=== PATIENT | female | born 1995 | race Caucasian/White ===

== ENCOUNTER 2016-04-23 08:34 | Emergency (ER) | payer OTHER ==
[~2016-04-23] VITALS: Ht 165.1 cm; Wt 77.1 kg
[~2016-04-23 08:34] MED LIST: CIPR500T94 PO; HYDR-2666 PO; HYDR-971 PO; LEVO500T38 PO; LEVO750T5 PO; NITR100C62 PO; ONDA4TAB10 SL; PROM25TA10 PO; SULF1TAB24 PO
--- NOTE | 2016-04-23 09:34 | PHYS DOC ---
Past Medical History Past Medical History: Anxiety, Asthma, Other Additional Past Medical Histor: BRADYCARDIA, PANIC ATTACK, PTSD Past Surgical History: Cholecystectomy, Other Additional Past Surgical Histo: LEFT FOOT SURGERY FRX REPAIR WITH HARDWARE Alcohol Use: Occasionally Drug Use: Cocaine, Marijuana, Methamphetamine Adult General Chief Complaint Chief Complaint: DRUG ABUSE HPI HPI Patient is a 21 year old female who presents with complaint of suicidal ideation. The patient states that over the past week she had thoughts of wanting to hurt herself. Patient states that she decided that she would relapsed on methamphetamine use and states that she took 8 hits of methamphetamine through both snorting and injecting. Patient states that the last injections took place about 1700 yesterday. Patient states currently she is feeling anxious and also feels like she is having difficulty breathing due to dry mouth. The patient also notes that she is having pain in her right forearm. Patient does admit that this was an area where she injected herself yesterday. Patient states that she has been under a significant amount of stress. The patient states that she does not have thoughts currently of committing suicide but she does not feel safe with herself and she thinks that she may relapse and 1 arm herself again if she leaves the department. The patient states the pain in her right arm is 10 out of 10 currently. He is having numbness and tingling in the right hand. Patient denies any fevers. Review of Systems Review of Systems Constitutional: Denies fever or chills [] Eyes: Denies change in visual acuity, redness, or eye pain [] HENT: Denies nasal congestion or sore throat [] Respiratory: Shortness of breath [] Cardiovascular: Denies chest pain or edema [] GI: Denies abdominal pain, nausea, vomiting, bloody stools or diarrhea [] : Denies dysuria or hematuria [] Musculoskeletal: Right arm pain [] Integument: Hives [] Neurologic: Denies headache, focal weakness or sensory changes [] Endocrine: Denies polyuria or polydipsia [] Current Medications Current Medications Current Medications Medications (Trade) Dose Ordered Sig/Lloyd Start Time Stop Time Status Last Admin Dose Admin Lorazepam (Ativan) 1 mg 1X ONCE 04/23/16 12:00 04/23/16 12:01 DC 04/23/16 12:39 1 MG Sodium Chloride (Iv Sodium Chloride 0.9% 1000ml Bag) 1,000 ml @ 1,000 mls/hr Q1H 04/23/16 09:55 04/23/16 10:54 DC 04/23/16 10:42 1,000 MLS/HR Allergies Allergies Allergies Coded Allergies Type Severity Reaction Last Updated Verified Fish Containing Products Allergy Intermediate HIVES- TUNA 04/23/16 Yes Penicillins Allergy Intermediate Hives 04/23/16 Yes ondansetron Allergy Intermediate 04/23/16 Yes Physical Exam Physical Exam Constitutional: Alert, afebrile, appears anxious. [] HENT: Normocephalic, atraumatic, bilateral external ears normal, oropharynx moist, no oral exudates, nose normal. [] Eyes: PERRLA, EOMI, conjunctiva normal, no discharge. [] Neck: Normal range of motion, no tenderness, supple, no stridor. [] Cardiovascular: Tachycardiac, regular rhythm, no murmur [] Lungs & Thorax: Bilateral breath sounds clear to auscultation [] Abdomen: Bowel sounds normal, soft, no tenderness, no masses, no pulsatile masses. [] Skin: Warm, dry, no erythema, no rash. [] Back: No tenderness, no CVA tenderness. [] Extremities: Mild to moderate soft tissue swelling in distal right forearm, tender to palpation, limited range of motion in right wrist secondary to pain, pulses 2+, normal capillary refill in all 5 digits of the right hand [] Neurologic: Alert and oriented X 3, normal motor function, normal sensory function, no focal deficits noted. [] Current Patient Data Vital Signs Vital Signs Date Time Temp Pulse Resp B/P Pulse Ox O2 Delivery O2 Flow Rate FiO2 04/23/16 08:40 98.1 97 26 145/89 100 Room Air 98.1 Lab Values Laboratory Tests Test 04/23/16 08:40 04/23/16 10:40 Urine Collection Type Void Urine Color Yellow Urine Clarity Cloudy Urine pH 7.0 Urine Specific [place] 1.010 Urine Protein Negativemg/dL (NEG-TRACE) Urine Glucose (UA) Negativemg/dL (NEG) Urine Ketones (Stick) Negativemg/dL (NEG) Urine Blood Trace (NEG) Urine Nitrite Negative (NEG) Urine Bilirubin Negative (NEG) Urine Urobilinogen Dipstick 1.0mg/dL (0.2 mg/dL) Urine Leukocyte Esterase Large (NEG) Urine RBC 0/HPF (0-2) Urine WBC 11-20/HPF (0-4) Urine Squamous Epithelial Cells Many/LPF Urine Bacteria Few/HPF (0-FEW) Urine Test Negative (NEG) Urine Opiates Screen Neg (NEG) Urine Methadone Screen Neg (NEG) Urine Barbiturates Neg (NEG) Urine Phencyclidine Screen Neg (NEG) Urine Amphetamine/Methamphetamine Pos (NEG) Urine Benzodiazepines Screen Neg (NEG) Urine Cocaine Screen Neg (NEG) Urine Cannabinoids Screen Pos (NEG) Urine Ethyl Alcohol Neg (NEG) White Blood Count 13.4x10^3/uL (4.0-11.0) H Red Blood Count 4.74x10^6/uL (3.50-5.40) Hemoglobin 13.8g/dL (12.0-15.5) Hematocrit 41.2% (36.0-47.0) Mean Corpuscular Volume 87fL (79-100) Mean Corpuscular Hemoglobin 29pg (25-35) Mean Corpuscular Hemoglobin Concent 34g/dL (31-37) Red Cell Distribution Width 14.1% (11.5-14.5) Platelet Count 296x10^3/uL (140-400) Neutrophils (%) (Auto) 75% (31-73) H Lymphocytes (%) (Auto) 17% (24-48) L Monocytes (%) (Auto) 7% (0-9) Eosinophils (%) (Auto) 0% (0-3) Basophils (%) (Auto) 1% (0-3) Neutrophils # (Auto) 10.1x10^3uL (1.8-7.7) H Lymphocytes # (Auto) 2.2x10^3/uL (1.0-4.8) Monocytes # (Auto) 0.9x10^3/uL (0.0-1.1) Eosinophils # (Auto) 0.1x10^3/uL (0.0-0.7) Basophils # (Auto) 0.1x10^3/uL (0.0-0.2) Sodium Level 136mmol/L (136-145) Potassium Level 3.3mmol/L (3.5-5.1) L Chloride Level 102mmol/L (98-107) Carbon Dioxide Level 22mmol/L (21-32) Anion Gap 12 (6-14) Blood Urea Nitrogen 6mg/dL (7-20) L Creatinine 0.8mg/dL (0.6-1.0) Estimated GFR (Cockcroft-Gault) 90.5 Glucose Level 90mg/dL (70-99) Calcium Level 9.4mg/dL (8.5-10.1) Magnesium Level 1.7mg/dL (1.8-2.4) L Total Bilirubin 1.8mg/dL (0.2-1.0) H Direct Bilirubin 0.2mg/dL (0.0-0.2) Aspartate Amino Transferase (AST) 18U/L (15-37) Alanine Aminotransferase (ALT) 18U/L (14-59) Alkaline Phosphatase 89U/L (46-116) Total Protein 8.2g/dL (6.4-8.2) Albumin 4.0g/dL (3.4-5.0) Salicylates Level < 2.8mg/dL (2.8-20.0) L Salicylate Last Dose Date Unknown Salicylate Last Dose Time Unknown Acetaminophen Level < 2.0mcg/ml (10-30) L Acetaminophen Last Dose Date Unknown Acetaminophen Last Dose Time Unknown Laboratory Tests 04/23/16 10:40 Laboratory Tests 04/23/16 10:40 EKG EKG Interpreted by me: Heart rate 94, sinus rhythm, normal intervals, normal axis, no acute ST/T-wave abnormalities present [] Radiology/Procedures Radiology/Procedures [facility] [address] [place], [place] [id number] IMAGING REPORT Signed PATIENT: LUZ ELENA HERNANDEZ ACCOUNT: [id number] : 1995 LOCATION: ER AGE: 21 SEX: F EXAM STATUS: REG ER ORD. PHYSICIAN: ULISES MENDENHALL MD REASON: INJECTED IV DRUGS 04/22, PAIN AND REDNESS PROCEDURE: FOREARM RIGHT Right forearm radiograph History: Right forearm pain, history of IV drug abuse. Comparison: None. Findings: AP and lateral views of the right forearm, 3 images. No acute osseous abnormality is identified. No radiopaque foreign body is seen within the soft tissues of the right forearm. No focal soft tissue gas collection is seen. Impression: No acute radiographic abnormality identified. DICTATED and SIGNED BY: PARVIN ORTEZ MD DATE: 04/23/16 1023 CC: ULISES MENDENHALL MD; NO PCP ~ [] Course & Med Decision Making Course & Med Decision Making Pertinent Labs and Imaging studies reviewed. (See chart for details) Patient was given IV fluids and was given Ativan to help with what appeared to be symptoms consistent with sequela of methamphetamine use. Patient's symptoms improved. Patient's pain has also improved in the right upper extremity and the patient is currently able to use her cell phone without difficulty while in the emergency department. Due to the patient not feeling safe by herself, I consult that [facility] team. He came and evaluated the patient in the emergency department. After speaking with the patient and after calling available facilities, the patient was accepted at [facility]. The patient will be transferred by ground ambulance. The patient was also found to have evidence of urinary tract infection and was started on Macrobid therapy. Dragon Disclaimer Dragon Disclaimer This electronic medical record was generated, in whole or in part, using a voice recognition dictation system. Departure Departure Impression: Primary Impression: Suicidal thoughts Additional Impressions: Methamphetamine abuse Urinary tract infection Disposition: 05 TRANSFER OTHER Condition: STABLE Referrals: NO PCP (PCP) Patient Instructions: Substance Abuse-Brief, Urinary Tract Infection Additional Instructions: You will be transferred to [facility] for further treatment. He will also need to complete your antibiotic for treatment of your urinary tract infection. Return to emergency department for any worsening symptoms. Scripts Nitrofurantoin Monohyd/M-Cryst (Macrobid 100 Mg Capsule)100 Mg Capsule1 Cap PO BID #14 CAP Prov:ULISES MENDENHALL MD 04/23/16 Problem Qualifiers Additional Impressions: Urinary tract infection Urinary tract infection type: site unspecified Hematuria presence: without hematuria Qualified Code: N39.0 - Urinary tract infection, site not specified ULISES MENDENHALL MD Apr 23, 2016 09:34
[2016-04-23] MEDS ORDERED: IV NORMAL SALINE 1000ML BAG 1,000 ML IV SCH (09:55)
[2016-04-23] MEDS ORDERED: LORAZEPAM 2 MG/ML VIAL IV ONE ×2 (10:00→12:00)
[2016-04-23 10:04] LABS: NEG OBC UR NEG; POS OBC UR POS
[2016-04-23 10:12] LABS: BILIRUBIN,URINE NEGATIVE (NEG); GLUCOSE,URINE NEGATIVE (NEG); NITRITE,URINE NEGATIVE (NEG); PROTEIN,URINE NEGATIVE (NEG-TRACE)
--- NOTE | 2016-04-23 10:26 | RAD ---
Right forearm radiograph History: Right forearm pain, history of IV drug abuse. Comparison: None. Findings: AP and lateral views of the right forearm, 3 images. No acute osseous abnormality is identified. No radiopaque foreign body is seen within the soft tissues of the right forearm. No focal soft tissue gas collection is seen. Impression: No acute radiographic abnormality identified.
[2016-04-23 10:28] LABS: BACTERIA,URINE FEW /HPF (0-FEW); RBC,URINE 0 /HPF (0-2); SQUAMOUS EPITHELIAL CELL,UR MANY /LPF
[2016-04-23 10:30] LABS: BARBITURATES NEG (NEG); BENZODIAZEPINES NEG (NEG); CANNABINOIDS POS (NEG); COCAINE NEG (NEG); METHADONE NEG (NEG); OPIATES NEG (NEG); PHENCYCLIDINE NEG (NEG)
[2016-04-23 10:32] LABS: ETHANOL, URINE NEG (NEG)
[2016-04-23 11:01] LABS: BASO # 0.1 x10^3/uL (0.0-0.2); BASO % 1 % (0-3); EOS % 0 % (0-3); HEMATOCRIT 41.2 % (36.0-47.0); HEMOGLOBIN 13.8 g/dL (12.0-15.5); LYMPH # 2.2 x10^3/uL (1.0-4.8); LYMPH % 17 % (24-48); MEAN CORPUSCULAR HEMOGLOBIN 29 pg (25-35); MEAN CORPUSCULAR HGB CONC 34 g/dL (31-37); MEAN CORPUSCULAR VOLUME 87 fL (79-100); MONO % 7 % (0-9); NEUT % 75 % (31-73); PLATELET COUNT 296 x10^3/uL (140-400); RED BLOOD COUNT 4.74 x10^6/uL (3.50-5.40); RED CELL DISTRIBUTION WIDTH 14.1 % (11.5-14.5); WHITE BLOOD COUNT 13.4 x10^3/uL (4.0-11.0)
[2016-04-23 11:10] LABS: CALCIUM 9.4 mg/dL (8.5-10.1); CREATININE 0.8 mg/dL (0.6-1.0); GFR 90.5; POTASSIUM 3.3 mmol/L (3.5-5.1)
[2016-04-23 11:18] LABS: DIRECT BILIRUBIN 0.2 mg/dL (0.0-0.2); MAGNESIUM 1.7 mg/dL (1.8-2.4); TOTAL BILIRUBIN 1.8 mg/dL (0.2-1.0); TOTAL PROTEIN 8.2 g/dL (6.4-8.2)
--- NOTE | 2016-04-23 12:24 | EKG ---
[facility] [address] [place] [address] Test Date: 2016-04-23 Test Time: 10:34:19 Pat Name: LUZ ELENA HERNANDEZ Department: Room: Gender: F Histopathologist: : 1995 Requested By: ULISES MENDENHALL Order Number: [id number] Reading MD: Clarence Kim Measurements Intervals [place] Rate: 94 P: 34 UT: 142 QRS: 40 QRSD: 84 T: 22 QT: 382 QTc: 478 Interpretive Statements SINUS RHYTHM Electronically Signed On 04-29-2016 11:26:44 LIP OF SHANK CUTTER by Clarence Kim
[2016-04-23] MEDS ORDERED: NITR100C62 PO (14:18)
[2016-04-23 14:40] VITALS: BP 140/76
== END 2016-04-23 15:05 ==
LOC: ER 08:34
DX: T43.622A Poisoning by amphetamines, intentional self-harm, initial encounter (principal); F15.10 Other stimulant abuse, uncomplicated; N39.0 Urinary tract infection, site not specified; J45.909 Unspecified asthma, uncomplicated; F41.9 Anxiety disorder, unspecified; F41.0 Panic disorder [episodic paroxysmal anxiety]; F43.10 Post-traumatic stress disorder, unspecified; F14.10 Cocaine abuse, uncomplicated; F12.10 Cannabis abuse, uncomplicated; Z88.0 Allergy status to penicillin; Z88.8 Allergy status to other drugs, medicaments and biological substances; Z91.013 Allergy to seafood; Y92.89 Other specified places as the place of occurrence of the external cause
CPT/HCPCS: 36415; 73090; 80048; 80076; 81001; 81025; 83735; 85027; 87086; 93005; 96361; 96374; 96376; 99285; G0481; G6038; J2060; J7030; 80196

== ENCOUNTER 2016-05-12 00:39 | Emergency (ER) | payer SELFPAY ==
[~2016-05-12] VITALS: Ht 165.1 cm; Wt 77.1 kg
[2016-05-12 00:45] VITALS: BP 126/107
[2016-05-12] MEDS ORDERED: ZIPRASIDONE IM 20 MG VIAL. IM ONE (01:15)
[2016-05-12] MEDS ORDERED: IV NORMAL SALINE 1000ML BAG 1,000 ML IV ONE (01:15)
[2016-05-12 01:23] LABS: BASO # 0.1 x10^3/uL (0.0-0.2); BASO % 1 % (0-3); EOS % 2 % (0-3); HEMATOCRIT 39.1 % (36.0-47.0); HEMOGLOBIN 12.9 g/dL (12.0-15.5); LYMPH # 1.7 x10^3/uL (1.0-4.8); LYMPH % 13 % (24-48); MEAN CORPUSCULAR HEMOGLOBIN 30 pg (25-35); MEAN CORPUSCULAR HGB CONC 33 g/dL (31-37); MEAN CORPUSCULAR VOLUME 90 fL (79-100); MONO % 7 % (0-9); NEUT % 78 % (31-73); PLATELET COUNT 250 x10^3/uL (140-400); RED BLOOD COUNT 4.36 x10^6/uL (3.50-5.40); RED CELL DISTRIBUTION WIDTH 13.7 % (11.5-14.5)
[2016-05-12 01:31] LABS: CALCIUM 9.2 mg/dL (8.5-10.1); CREATININE 0.7 mg/dL (0.6-1.0); GFR 105.6; POTASSIUM 3.3 mmol/L (3.5-5.1)
[2016-05-12 01:37] LABS: ALBUMIN 3.7 g/dL (3.4-5.0); ALBUMIN/GLOBULIN RATIO 0.9 (1.0-1.7); TOTAL BILIRUBIN 0.6 mg/dL (0.2-1.0); TOTAL PROTEIN 7.6 g/dL (6.4-8.2)
[2016-05-12 01:58] LABS: NEG OBC UR NEG; POS OBC UR POS
[2016-05-12 02:00] LABS: BILIRUBIN,URINE MODERATE (NEG); GLUCOSE,URINE NEGATIVE (NEG); NITRITE,URINE NEGATIVE (NEG); PROTEIN,URINE NEGATIVE (NEG-TRACE)
[2016-05-12 02:05] LABS: BARBITURATES NEG (NEG); BENZODIAZEPINES NEG (NEG); CANNABINOIDS POS (NEG); COCAINE NEG (NEG); METHADONE NEG (NEG); OPIATES NEG (NEG); PHENCYCLIDINE NEG (NEG)
[2016-05-12 02:07] LABS: BACTERIA,URINE MANY /HPF (0-FEW); ETHANOL, URINE NEG (NEG); RBC,URINE 0 /HPF (0-2); SQUAMOUS EPITHELIAL CELL,UR FEW /LPF
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
[2016-05-12] MEDS ORDERED: LEVOFLOXACIN 500 MG TABLET PO ONE (03:15)
[2016-05-12] MEDS ORDERED: LORAZEPAM 2 MG/ML VIAL IV ONE (03:30)
== END 2016-05-12 04:42 | disposition home or self-care (01) ==
LOC: ER 00:39
DX: F15.10 Other stimulant abuse, uncomplicated (principal); F12.10 Cannabis abuse, uncomplicated; F14.10 Cocaine abuse, uncomplicated; J45.909 Unspecified asthma, uncomplicated; F43.10 Post-traumatic stress disorder, unspecified; F41.9 Anxiety disorder, unspecified; Z88.0 Allergy status to penicillin; Z91.013 Allergy to seafood; Z88.8 Allergy status to other drugs, medicaments and biological substances
CPT/HCPCS: 36415; 51701; 80053; 81001; 81025; 85027; 87086; 96361; 96374; 99285; G0480; G0481; J2060; J7030

== ENCOUNTER 2016-06-03 12:50 | Emergency (ER) | payer SELFPAY ==
[~2016-06-03] VITALS: Ht 165.1 cm; Wt 81.6 kg
[2016-06-03 13:41] LABS: BILIRUBIN,URINE SMALL (NEG); GLUCOSE,URINE NEGATIVE (NEG); NITRITE,URINE NEGATIVE (NEG); PH,URINE 7.5; PROTEIN,URINE NEGATIVE (NEG-TRACE); UROBILINOGEN,URINE 0.2 mg/dL (0.2 mg/dL)
[2016-06-03 13:48] LABS: BACTERIA,URINE MANY /HPF (0-FEW); RBC,URINE 0 /HPF (0-2); SQUAMOUS EPITHELIAL CELL,UR MANY /LPF
[2016-06-03 13:53] LABS: BASO % 1 % (0-3); EOS % 1 % (0-3); HEMATOCRIT 40.7 % (36.0-47.0); HEMOGLOBIN 13.3 g/dL (12.0-15.5); LYMPH # 1.4 x10^3/uL (1.0-4.8); LYMPH % 20 % (24-48); MEAN CORPUSCULAR HEMOGLOBIN 29 pg (25-35); MEAN CORPUSCULAR HGB CONC 33 g/dL (31-37); MEAN CORPUSCULAR VOLUME 89 fL (79-100); MONO % 6 % (0-9); NEUT % 73 % (31-73); PLATELET COUNT 226 x10^3/uL (140-400); RED BLOOD COUNT 4.57 x10^6/uL (3.50-5.40); RED CELL DISTRIBUTION WIDTH 14.6 % (11.5-14.5); WHITE BLOOD COUNT 7.3 x10^3/uL (4.0-11.0)
[2016-06-03] MEDS ORDERED: DOXYLAMINE SUCCINATE 25 MG TABLET PO ONE (14:15)
[2016-06-03] MEDS ORDERED: IV NORMAL SALINE 500ML BAG 500 ML IV ONE (14:15)
[2016-06-03] MEDS ORDERED: METOCLOPRAMIDE HCL 10 MG/2 ML VIAL. IV ONE (14:15)
[2016-06-03] MEDS ORDERED: PYRIDOXINE 50 MG TABLET. PO ONE (14:15)
--- NOTE | 2016-06-03 14:40 | RAD ---
Obstetrical ultrasound, 06/03/2016: History: Vaginal bleeding, previous miscarriage Transabdominal scans were obtained. The uterus contains a single gestational sac. The gestational sac contains a yolk sac and a small pole. The pole demonstrates a crown-rump length of 1.2 cm compatible with a gestational age of 7-8 weeks. This yields a sonographic EDC of 01/17/2017. cardiac activity is present with the heart rate measured at 143 bpm. No subchorionic hemorrhage is evident. The ovaries are within normal limits in size. No adnexal abnormality is seen. IMPRESSION: Single viable intrauterine fetus of 7-8 weeks gestational age.
[2016-06-03 15:20] LABS: CALCIUM 8.9 mg/dL (8.5-10.1); CREATININE 0.6 mg/dL (0.6-1.0); GFR 126.2; POTASSIUM 3.7 mmol/L (3.5-5.1)
[2016-06-03 15:44] LABS: ALBUMIN 3.5 g/dL (3.4-5.0); DIRECT BILIRUBIN 0.1 mg/dL (0.0-0.2); TOTAL BILIRUBIN 0.4 mg/dL (0.2-1.0); TOTAL PROTEIN 7.4 g/dL (6.4-8.2)
[2016-06-03 15:49] VITALS: BP 129/67
--- NOTE | 2016-06-03 15:50 | PHYS DOC ---
Past Medical History Past Medical History: Anxiety, Asthma, Other Additional Past Medical Histor: BRADYCARDIA, PANIC ATTACK, PTSD, DRUG ABUSE Past Surgical History: Cholecystectomy, Other Additional Past Surgical Histo: LEFT FOOT SURGERY FRX REPAIR WITH HARDWARE Alcohol Use: Occasionally Drug Use: Cocaine, Marijuana, Methamphetamine Adult General Chief Complaint Chief Complaint: VAGINAL BLEEDING HPI HPI 21-year-old female presenting the emergency department with vaginal bleeding this started approximately 10-20 hours ago. She has mild abdominal pain is cramping in the lower left abdomen. It is nonradiating. It is associated with vomiting. Her vomitus is nonbilious. She is approximate 7 weeks . Review of systems is negative for chest pain shortness of breath fevers or chills. All other review of systems is negative unless otherwise noted in history of present illness. Review of Systems Review of Systems SEE ABOVE. Current Medications Current Medications Current Medications Medications (Trade) Dose Ordered Sig/Lloyd Start Time Stop Time Status Last Admin Dose Admin Doxylamine Succinate (Unisom) 10 mg 1X ONCE 06/03/16 14:15 06/03/16 14:16 UNV Metoclopramide HCl 10 mg 10 mg 1X ONCE 06/03/16 14:15 06/03/16 14:22 DC 06/03/16 14:32 10 MG Pyridoxine HCl (Vitamin B-6) 10 mg 1X ONCE 06/03/16 14:15 06/03/16 14:16 UNV Sodium Chloride (Iv Sodium Chloride 0.9% 500ml Bag) 500 ml @ 500 mls/hr 1X ONCE 06/03/16 14:15 06/03/16 15:14 DC 06/03/16 14:30 500 MLS/HR Allergies Allergies Allergies Coded Allergies Type Severity Reaction Last Updated Verified Fish Containing Products Allergy Intermediate HIVES- TUNA 04/23/16 Yes Penicillins Allergy Intermediate Hives 04/23/16 Yes ondansetron Allergy Intermediate 04/23/16 Yes Physical Exam Physical Exam Constitutional: Well developed, well nourished, no acute distress, non-toxic appearance. HENT: Normocephalic, atraumatic, bilateral external ears normal, oropharynx moist, no oral exudates, nose normal. [] Eyes: PERRLA, EOMI, conjunctiva normal, no discharge. Neck: Normal range of motion, no tenderness, supple, no stridor. [] Cardiovascular:Heart rate regular rhythm, no murmur Lungs & Thorax: Bilateral breath sounds clear to auscultation Abdomen: Soft nontender abdomen without rebound tenderness or guarding present. Negative McBurneys point. Negative Pan sign. No ecchymosis present. Skin: Warm, dry, no erythema, no rash. Back: No tenderness, no CVA tenderness. [] Extremities: No tenderness, no cyanosis, no clubbing, ROM intact, no edema. [] Neurologic: Alert and oriented X 3, normal motor function, normal sensory function, no focal deficits noted. Psychologic: Affect normal, judgement normal, mood normal. [] Current Patient Data Vital Signs Vital Signs Date Time Temp Pulse Resp B/P Pulse Ox O2 Delivery O2 Flow Rate FiO2 06/03/16 15:49 62 20 129/67 99 Room Air 06/03/16 13:26 97.6 97.6 Lab Values Laboratory Tests Test 06/03/16 12:33 06/03/16 13:27 06/03/16 13:40 06/03/16 14:40 Urine Collection Type Unknown Urine Color Dk yellow Urine Clarity Clear Urine pH 7.5 Urine Specific [place] 1.020 Urine Protein Negativemg/dL (NEG-TRACE) Urine Glucose (UA) Negativemg/dL (NEG) Urine Ketones (Stick) Negativemg/dL (NEG) Urine Blood Negative (NEG) Urine Nitrite Negative (NEG) Urine Bilirubin Small (NEG) Urine Urobilinogen Dipstick 0.2mg/dL (0.2 mg/dL) Urine Leukocyte Esterase Moderate (NEG) Urine RBC 0/HPF (0-2) Urine WBC 5-10/HPF (0-4) Urine Squamous Epithelial Cells Many/LPF Urine Bacteria Many/HPF (0-FEW) Urine Mucus Marked/LPF POC Urine HCG, Qualitative Hcg positive (Negative) White Blood Count 7.3x10^3/uL (4.0-11.0) Red Blood Count 4.57x10^6/uL (3.50-5.40) Hemoglobin 13.3g/dL (12.0-15.5) Hematocrit 40.7% (36.0-47.0) Mean Corpuscular Volume 89fL (79-100) Mean Corpuscular Hemoglobin 29pg (25-35) Mean Corpuscular Hemoglobin Concent 33g/dL (31-37) Red Cell Distribution Width 14.6% (11.5-14.5) H Platelet Count 226x10^3/uL (140-400) Neutrophils (%) (Auto) 73% (31-73) Lymphocytes (%) (Auto) 20% (24-48) L Monocytes (%) (Auto) 6% (0-9) Eosinophils (%) (Auto) 1% (0-3) Basophils (%) (Auto) 1% (0-3) Neutrophils # (Auto) 5.3x10^3uL (1.8-7.7) Lymphocytes # (Auto) 1.4x10^3/uL (1.0-4.8) Monocytes # (Auto) 0.4x10^3/uL (0.0-1.1) Eosinophils # (Auto) 0.1x10^3/uL (0.0-0.7) Basophils # (Auto) 0.0x10^3/uL (0.0-0.2) Maternal Serum HCG Beta Subunit [id number]/mL (0-6) H Sodium Level 141mmol/L (136-145) Potassium Level 3.7mmol/L (3.5-5.1) Chloride Level 106mmol/L (98-107) Carbon Dioxide Level 25mmol/L (21-32) Anion Gap 10 (6-14) Blood Urea Nitrogen 4mg/dL (7-20) L Creatinine 0.6mg/dL (0.6-1.0) Estimated GFR (Cockcroft-Gault) 126.2 Glucose Level 91mg/dL (70-99) Calcium Level 8.9mg/dL (8.5-10.1) Total Bilirubin 0.4mg/dL (0.2-1.0) Direct Bilirubin 0.1mg/dL (0.0-0.2) Aspartate Amino Transferase (AST) 19U/L (15-37) Alanine Aminotransferase (ALT) 25U/L (14-59) Alkaline Phosphatase 58U/L (46-116) Total Protein 7.4g/dL (6.4-8.2) Albumin 3.5g/dL (3.4-5.0) Lipase 123U/L (73-393) Laboratory Tests 06/03/16 13:40 Laboratory Tests 06/03/16 14:40 EKG EKG [] Radiology/Procedures Radiology/Procedures [] Course & Med Decision Making Course & Med Decision Making Pertinent Labs and Imaging studies reviewed. (See chart for details) [] 21-year-old female is approximately 7 weeks presenting to the emergency department today with abdominal pain and vaginal bleeding. Vital signs unremarkable. Physical exam showed a nontender abdomen. Rh+. CBC unremarkable. Urinalysis suggestive of possible UTI. Chemistry panel otherwise unremarkable ultrasound shows an intrauterine . The patient was subsequent discharged home to follow up with her OB in 2-3 days. She was discharged home with Keflex for urinary tract infection/bacteriuria. Dragon Disclaimer Dragon Disclaimer This electronic medical record was generated, in whole or in part, using a voice recognition dictation system. Departure Departure Impression: Primary Impression: UTI (urinary tract infection) Disposition: 01 HOME, SELF-CARE Condition: STABLE Referrals: NO PCP (PCP) ERNESTO PEACOCK Jr, MD Patient Instructions: Threatened Miscarriage Additional Instructions: Thank you for allowing us to participate in your care today. Followup with your primary care physician in 3 days if your symptoms do not improve. If you do not have a primary care provider you can ask for a list of our primary care providers. Return to the emergency department you have any new or concerning findings. This should be evaluated by the primary care physician and any necessary consulting services for continued management within a few days after discharge. Return to emergency room if you have any new or concerning symptoms including but not limited to fever, chills, nausea, vomiting, intractable pain, any new rashes, chest pain, shortness of air, uncontrolled bleeding, difficulty breathing, and/or vision loss. Scripts Cephalexin (Keflex)500 Mg Capsule1 Cap PO BID #14 CAP Prov:LOLITA GUZMAN MD 06/03/16 LOLITA GUZMAN MD Jun 03, 2016 15:50
[2016-06-03] MEDS ORDERED: CEPH-264 PO (15:52)
== END 2016-06-03 16:01 | disposition home or self-care (01) ==
LOC: ER 12:50
DX: O23.41 Unspecified infection of urinary tract in pregnancy, first trimester (principal); J45.909 Unspecified asthma, uncomplicated; F12.10 Cannabis abuse, uncomplicated; F14.10 Cocaine abuse, uncomplicated; F15.10 Other stimulant abuse, uncomplicated; Z88.0 Allergy status to penicillin; Z88.8 Allergy status to other drugs, medicaments and biological substances; Z91.013 Allergy to seafood; Z3A.01 Less than 8 weeks gestation of pregnancy
CPT/HCPCS: 36415; 76801; 80048; 80076; 81001; 81025; 83690; 84702; 85027; 86900; 86901; 87086; 96361; 96374; 99285; J2765; J7040; 87186

== ENCOUNTER 2016-06-16 17:27 | Emergency (ER) | payer SELFPAY ==
[~2016-06-16 17:27] MED LIST changes: +CEPH-264 PO
[2016-06-16] MEDS ORDERED: PROMETHAZINE IM 25 MG/ML VIAL IM ONE (18:45)
[2016-06-16] MEDS ORDERED: IV NORMAL SALINE 1000ML BAG 1,000 ML IV SCH (18:45)
[2016-06-16 19:40] LABS: BASO # 0.1 x10^3/uL (0.0-0.2); BASO % 0 % (0-3); EOS % 0 % (0-3); HEMATOCRIT 40.4 % (36.0-47.0); HEMOGLOBIN 13.2 g/dL (12.0-15.5); LYMPH # 1.3 x10^3/uL (1.0-4.8); LYMPH % 9 % (24-48); MEAN CORPUSCULAR HEMOGLOBIN 29 pg (25-35); MEAN CORPUSCULAR HGB CONC 33 g/dL (31-37); MEAN CORPUSCULAR VOLUME 90 fL (79-100); MONO % 4 % (0-9); NEUT % 87 % (31-73); PLATELET COUNT 223 x10^3/uL (140-400); WHITE BLOOD COUNT 15.6 x10^3/uL (4.0-11.0)
[2016-06-16 19:55] LABS: CALCIUM 8.7 mg/dL (8.5-10.1); CREATININE 0.6 mg/dL (0.6-1.0); GFR 126.2; POTASSIUM 3.8 mmol/L (3.5-5.1)
[2016-06-16 20:01] LABS: ALBUMIN 3.3 g/dL (3.4-5.0); MAGNESIUM 1.8 mg/dL (1.8-2.4); TOTAL BILIRUBIN 0.4 mg/dL (0.2-1.0); TOTAL PROTEIN 6.7 g/dL (6.4-8.2)
[2016-06-16 20:14] LABS: BILIRUBIN,URINE NEGATIVE (NEG); GLUCOSE,URINE NEGATIVE (NEG); NITRITE,URINE POSITIVE (NEG); PROTEIN,URINE 30 mg/dL (NEG-TRACE)
--- NOTE | 2016-06-16 20:27 | PHYS DOC ---
Past Medical History Past Medical History: Anxiety, Asthma, Other Additional Past Medical Histor: BRADYCARDIA, PANIC ATTACK, PTSD, DRUG ABUSE Past Surgical History: Cholecystectomy, Other Additional Past Surgical Histo: LEFT FOOT SURGERY FRX REPAIR WITH HARDWARE Alcohol Use: Occasionally Drug Use: Cocaine, Marijuana, Methamphetamine Adult General Chief Complaint Chief Complaint: VOMITING IN HPI HPI Patient is a 21 year old female who presents with complaint of nausea, vomiting , and lower abdominal pain. Patient is A1 approximately 9 weeks with last menstrual period on February 23, 2016. Patient states that she started getting severe lower abdominal pain with multiple episodes of vomiting earlier this morning and has had persistent symptoms since. Patient states that she followed up with [facility] where she had an ultrasound that confirmed an intrauterine . Patient has not had any associated fevers. Patient rates her pain as 8 out of 10 and states that it is sharp. Patient denies any exacerbating symptoms for her pain. Patient has not taken any medications to help with symptoms. Patient has not currently set up with care. Review of Systems Review of Systems Constitutional: Denies fever or chills [] Eyes: Denies change in visual acuity, redness, or eye pain [] HENT: Denies nasal congestion or sore throat [] Respiratory: Denies cough or shortness of breath [] Cardiovascular: Denies chest pain or edema [] GI: Abdominal pain, nausea, vomiting, denies bloody stools or diarrhea [] : Denies vaginal bleeding, discharge, dysuria, or hematuria [] Musculoskeletal: Denies back pain or joint pain [] Integument: Denies rash or skin lesions [] Neurologic: Denies headache, focal weakness or sensory changes [] Current Medications Current Medications Current Medications Medications (Trade) Dose Ordered Sig/Lloyd Start Time Stop Time Status Last Admin Dose Admin Ceftriaxone Sodium (Rocephin 1gm Ivpb For Omni) 50 ml @ 100 mls/hr 1X ONCE 06/16/16 20:45 06/16/16 21:14 Promethazine HCl 25 mg 25 mg 1X ONCE 06/16/16 18:45 06/16/16 18:48 DC 06/16/16 19:12 25 MG Sodium Chloride (Iv Sodium Chloride 0.9% 1000ml Bag) 1,000 ml @ 1,000 mls/hr Q1H 06/16/16 18:45 06/16/16 19:44 DC 06/16/16 19:11 1,000 MLS/HR Allergies Allergies Allergies Coded Allergies Type Severity Reaction Last Updated Verified Fish Containing Products Allergy Intermediate HIVES- TUNA 04/23/16 Yes Penicillins Allergy Intermediate Hives 06/16/16 Yes ondansetron Allergy Intermediate 04/23/16 Yes Physical Exam Physical Exam Constitutional: Alert, afebrile, appears in mild discomfort. [] HENT: Normocephalic, atraumatic, bilateral external ears normal, oropharynx moist, no oral exudates, nose normal. [] Eyes: PERRLA, EOMI, conjunctiva normal, no discharge. [] Neck: Normal range of motion, no tenderness, supple, no stridor. [] Cardiovascular:Heart rate regular rhythm, no murmur [] Lungs & Thorax: Bilateral breath sounds clear to auscultation [] Abdomen: Bowel sounds normal, soft, suprapubic tenderness to palpation, no masses, no pulsatile masses. Pelvic: Normal external exam, no blood in vaginal canal, no cervical motion tenderness, midline and right adnexal tenderness to palpation [] Skin: Warm, dry, no erythema, no rash. [] Back: No tenderness, no CVA tenderness. [] Extremities: No tenderness, no cyanosis, no clubbing, ROM intact, no edema. [] Neurologic: Alert and oriented X 3, normal motor function, normal sensory function, no focal deficits noted. [] Current Patient Data Vital Signs Vital Signs Date Time Temp Pulse Resp B/P Pulse Ox O2 Delivery O2 Flow Rate FiO2 06/16/16 19:45 86 101/65 98 Room Air 06/16/16 19:14 18 06/16/16 18:00 98.8 98.8 Lab Values Laboratory Tests Test 06/16/16 19:20 06/16/16 20:00 White Blood Count 15.6x10^3/uL (4.0-11.0) H Red Blood Count 4.50x10^6/uL (3.50-5.40) Hemoglobin 13.2g/dL (12.0-15.5) Hematocrit 40.4% (36.0-47.0) Mean Corpuscular Volume 90fL (79-100) Mean Corpuscular Hemoglobin 29pg (25-35) Mean Corpuscular Hemoglobin Concent 33g/dL (31-37) Red Cell Distribution Width 15.0% (11.5-14.5) H Platelet Count 223x10^3/uL (140-400) Neutrophils (%) (Auto) 87% (31-73) H Lymphocytes (%) (Auto) 9% (24-48) L Monocytes (%) (Auto) 4% (0-9) Eosinophils (%) (Auto) 0% (0-3) Basophils (%) (Auto) 0% (0-3) Neutrophils # (Auto) 13.5x10^3uL (1.8-7.7) H Lymphocytes # (Auto) 1.3x10^3/uL (1.0-4.8) Monocytes # (Auto) 0.6x10^3/uL (0.0-1.1) Eosinophils # (Auto) 0.0x10^3/uL (0.0-0.7) Basophils # (Auto) 0.1x10^3/uL (0.0-0.2) Platelet Estimate Pending Maternal Serum HCG Beta Subunit [id number]/mL (0-6) H Sodium Level 141mmol/L (136-145) Potassium Level 3.8mmol/L (3.5-5.1) Chloride Level 106mmol/L (98-107) Carbon Dioxide Level 26mmol/L (21-32) Anion Gap 9 (6-14) Blood Urea Nitrogen 6mg/dL (7-20) L Creatinine 0.6mg/dL (0.6-1.0) Estimated GFR (Cockcroft-Gault) 126.2 BUN/Creatinine Ratio 10 (6-20) Glucose Level 94mg/dL (70-99) Calcium Level 8.7mg/dL (8.5-10.1) Magnesium Level 1.8mg/dL (1.8-2.4) Total Bilirubin 0.4mg/dL (0.2-1.0) Aspartate Amino Transferase (AST) 21U/L (15-37) Alanine Aminotransferase (ALT) 24U/L (14-59) Alkaline Phosphatase 61U/L (46-116) Total Protein 6.7g/dL (6.4-8.2) Albumin 3.3g/dL (3.4-5.0) L Albumin/Globulin Ratio 1.0 (1.0-1.7) Urine Collection Type U cath Urine Color [place] Urine Clarity Cloudy Urine pH 8.0 Urine Specific [place] >=1.030 Urine Protein 30mg/dL (NEG-TRACE) Urine Glucose (UA) Negativemg/dL (NEG) Urine Ketones (Stick) Tracemg/dL (NEG) Urine Blood Negative (NEG) Urine Nitrite Positive (NEG) Urine Bilirubin Negative (NEG) Urine Urobilinogen Dipstick 1.0mg/dL (0.2 mg/dL) Urine Leukocyte Esterase Small (NEG) Urine RBC Occ/HPF (0-2) Urine WBC 5-10/HPF (0-4) Urine Squamous Epithelial Cells None/LPF Urine Bacteria Many/HPF (0-FEW) Laboratory Tests 06/16/16 19:20 Laboratory Tests 06/16/16 19:20 Microbiology 06/16/16 Wet Prep - Final, Complete EKG EKG Not performed [] Radiology/Procedures Radiology/Procedures Limited bedside transabdominal ultrasound performed and interpreted by myself: Viable intrauterine , heart rate 164 bpm, no pelvic free fluid, no adnexal masses [] Course & Med Decision Making Course & Med Decision Making Pertinent Labs and Imaging studies reviewed. (See chart for details) Patient was given IV fluids and Phenergan. On reevaluation the patient states she is feeling better. The patient was found to have evidence of urinary tract infection and started on IV Rocephin. Patient will continue on a seven-day course of Macrobid for treatment. Patient referred to Dr. Singh to establish care. Recommended starting on daily vitamins. Advised return emergency department for any worsening symptoms. Patient voiced understanding and in agreement with treatment plan. Dragon Disclaimer Dragon Disclaimer This electronic medical record was generated, in whole or in part, using a voice recognition dictation system. Departure Departure Impression: Primary Impression: UTI (urinary tract infection) Additional Impression: First trimester Disposition: 01 HOME, SELF-CARE Condition: IMPROVED Referrals: NO PCP (PCP) ERNESTO SINGH Jr, MD Patient Instructions: Urinary Tract Infection Additional Instructions: Follow-up with Dr. Singh in 5-7 days. Return to the emergency department for any worsening symptoms. Scripts Promethazine Hcl 25 Mg Tablet1 Tab PO Q6HRS PRN NAUSEA/VOMITING #20 TAB Prov:ULISES MENDENHALL MD 06/16/16 Nitrofurantoin Monohyd/M-Cryst (Macrobid 100 Mg Capsule)100 Mg Capsule1 Cap PO BID #14 CAP Prov:ULISES MENDENHALL MD 06/16/16 Problem Qualifiers Primary Impression: UTI (urinary tract infection) Urinary tract infection type: site unspecified Hematuria presence: without hematuria Qualified Code: N39.0 - Urinary tract infection, site not specified ULISES MENDENHALL MD Jun 16, 2016 20:27
[2016-06-16 20:29] LABS: BACTERIA,URINE MANY /HPF (0-FEW); RBC,URINE OCC /HPF (0-2)
[2016-06-16] MEDS ORDERED: CEFTRIAXONE 1GM IVPB FOR OMNI 50 ML IV ONE (20:45)
[2016-06-16 20:48] LABS: PLT ESTIMATE ADEQUATE (ADEQUATE)
[2016-06-16] MEDS ORDERED: NITR100C62 PO (20:48)
[2016-06-16] MEDS ORDERED: PROM25TA10 PO (20:48)
[2016-06-16 20:49] LABS: ANISOCYTOSIS SLIGHT; OVALOCYTES OCC; POLYCHROMASIA SLIGHT
[2016-06-16 21:41] VITALS: BP 103/60
--- NOTE | 2016-06-19 16:24 | VNOTE ---
CALL BACK NOTE CALL BACK Microbiology 06/16/16 Wet Prep - Final, Complete 06/16/16 Urine Culture - Final, Complete 06/16/16 Urine Culture Result 1 (GILBERTO) - Final, Complete 06/16/16 Antimicrobic Susceptibility - Final, Complete The patient's STI test returned positive for chlamydia. She was not treated in the emergency department. I attempted to contact the patient. The phone number provided does not receive incoming phone calls. The patient will receive a certified letter informing her of the need for follow-up for her results. ESTRELLITA ROQUE Jun 19, 2016 16:23
== END 2016-06-16 21:43 | disposition home or self-care (01) ==
LOC: ER 17:27
DX: O23.41 Unspecified infection of urinary tract in pregnancy, first trimester (principal); O99.511 Diseases of the respiratory system complicating pregnancy, first trimester; J45.909 Unspecified asthma, uncomplicated; O99.321 Drug use complicating pregnancy, first trimester; F12.10 Cannabis abuse, uncomplicated; F14.10 Cocaine abuse, uncomplicated; F15.10 Other stimulant abuse, uncomplicated; O99.341 Other mental disorders complicating pregnancy, first trimester; F41.0 Panic disorder [episodic paroxysmal anxiety]; Z3A.09 9 weeks gestation of pregnancy; Z90.49 Acquired absence of other specified parts of digestive tract; Z88.0 Allergy status to penicillin; Z88.8 Allergy status to other drugs, medicaments and biological substances; Z91.013 Allergy to seafood
CPT/HCPCS: 36415; 80053; 81001; 83735; 84702; 85007; 85027; 87086; 87186; 87491; 87591; 96361; 96365; 96372; 99285; J0690; J2550; J7030; Q0111

== ENCOUNTER 2016-11-23 23:50 | Observation (INO) | payer OTHER ==
[~2016-11-23] VITALS: Ht 165.1 cm; Wt 115.2 kg
[~2016-11-23 23:50] MED LIST changes: -HYDR-2666 PO; +HYDR-2758 PO; -LEVO500T38 PO; +LEVO500T59 PO
[2016-11-24 00:38] LABS: BILIRUBIN,URINE NEGATIVE (NEG); GLUCOSE,URINE NEGATIVE (NEG); NITRITE,URINE NEGATIVE (NEG); PH,URINE 7.5; PROTEIN,URINE NEGATIVE (NEG-TRACE); UROBILINOGEN,URINE 0.2 mg/dL (0.2 mg/dL)
[2016-11-24 00:42] LABS: BACTERIA,URINE FEW /HPF (0-FEW); RBC,URINE 0 /HPF (0-2); SQUAMOUS EPITHELIAL CELL,UR MOD /LPF
[2016-11-24 00:50] LABS: BARBITURATES NEG (NEG); BENZODIAZEPINES NEG (NEG); CANNABINOIDS NEG (NEG); COCAINE NEG (NEG); METHADONE NEG (NEG); OPIATES NEG (NEG); PHENCYCLIDINE NEG (NEG)
[2016-11-24] MEDS ORDERED: IV RINGERS,LACTATED 1000ML 1,000 ML IV ONE (01:45)
[2016-11-24 02:01] LABS: BASO # 0.1 x10^3/uL (0.0-0.2); BASO % 1 % (0-3); EOS % 2 % (0-3); HEMATOCRIT 32.1 % (36.0-47.0); HEMOGLOBIN 10.9 g/dL (12.0-15.5); LYMPH # 2.4 x10^3/uL (1.0-4.8); LYMPH % 18 % (24-48); MEAN CORPUSCULAR HEMOGLOBIN 31 pg (25-35); MEAN CORPUSCULAR HGB CONC 34 g/dL (31-37); MEAN CORPUSCULAR VOLUME 91 fL (79-100); MONO % 7 % (0-9); NEUT % 73 % (31-73); PLATELET COUNT 225 x10^3/uL (140-400); RED BLOOD COUNT 3.53 x10^6/uL (3.50-5.40); RED CELL DISTRIBUTION WIDTH 13.1 % (11.5-14.5); WHITE BLOOD COUNT 13.4 x10^3/uL (4.0-11.0)
[2016-11-24] MEDS: PANTOPRAZOLE 40 MG TABLET.DR. PO SCH ×2 (02:04→08:00)
[2016-11-24] MEDS: METOCLOPRAMIDE HCL 10 MG/2 ML VIAL. IV SCH ×2 (02:04→10:22)
[2016-11-24 02:07] LABS: CALCIUM 8.9 mg/dL (8.5-10.1); CREATININE 0.5 mg/dL (0.6-1.0); GFR 155.7; POTASSIUM 3.7 mmol/L (3.5-5.1)
[2016-11-24 02:10] VITALS: BP 116/66
[2016-11-24 02:13] LABS: ALBUMIN 2.5 g/dL (3.4-5.0); ALBUMIN/GLOBULIN RATIO 0.6 (1.0-1.7); TOTAL BILIRUBIN 0.3 mg/dL (0.2-1.0); TOTAL PROTEIN 6.4 g/dL (6.4-8.2)
[2016-11-24] MEDS: IV RINGERS,LACTATED 1000ML 1,000 ML IV SCH ×2 (04:09→10:22)
--- NOTE | 2016-11-24 12:27 | PDOC1 ---
OB - History Hx of Present Care: Limited Care Ultrasounds: Normal mid trimester US Obstetrical Complications: None, Hyperemesis Medical Complications: None Past Family/Social History * Past Medical, Surgical, Family and Obstetric Histories reviewed from chart. Rubella: Immune RPR/VDRL: Negative GBS Status: Unknown HBsAG: Negative OB - Chief Complaint & HPI Date of Admission: Date of Admission: Nov 23, 2016 at 23:50 Chief Complaint/History : 2 Para: 1 EGA: 33 Reason for admission: observation Admission Nurse Assessment Rev: Yes Problems: OB - Admission Exam Physical Exam Vitals: VS - Last 72 Hours, by Label Date Time Temp Pulse Resp B/P (MAP) Pulse Ox O2 Delivery O2 Flow Rate FiO2 11/24/16 02:10 98.4 85 20 116/66 (83) Room Air 98.4 HEENT: Other (dry mucous membranes) Heart: Regular Rate Lungs: Clear Abdomen: Gravid, Non tender, Soft Extremities: Edema Reflexes: Normal Cervical Dilatation: None Effacement: 0% Station: Ballotable Membranes: Intact Accelerations: Accelerations Present Decelerations: No decelerations Contractions on Admission: None Text A: 33 wks IUP N/V GERD P: IV hydration, reglan and protonix. D/c home when hydrated and feeling better. ERNESTO PEACOCK Jr, MD Nov 24, 2016 12:27
== END 2016-11-24 13:30 | disposition home or self-care (01) ==
LOC: 3 SO LND 23:50
PROVIDERS: ADMIT Obstetrics & Gynecology; ATTEND Obstetrics & Gynecology
DX: O21.2 Late vomiting of pregnancy (principal); O99.613 Diseases of the digestive system complicating pregnancy, third trimester; K21.9 Gastro-esophageal reflux disease without esophagitis; O26.893 Other specified pregnancy related conditions, third trimester; R51 Headache; Z3A.33 33 weeks gestation of pregnancy
CPT/HCPCS: 36415; 80053; 80307; 81001; 85025; 87086; 96361; 96374; 96376; G0378; G0379; J2765; J7120; G0479

== ENCOUNTER 2017-05-26 20:28 | Emergency (ER) | payer OTHER ==
[2017-05-26 20:43] LABS: URINE HCG POC HCG POSITIVE (Negative)
[2017-05-26] MEDS ORDERED: KETOROLAC 15 MG/ML VIAL. IV ×2 (21:15)
[2017-05-26] MEDS ORDERED: methylPREDNISolone SOD SUCC PF 125 MG/2 ML VIAL. ×2 (21:28)
[2017-05-26] MEDS: ACETAMINOPHEN 325 MG TABLET. PO ×2 (21:35)
[2017-05-26] MEDS: METOCLOPRAMIDE HCL 10 MG/2 ML VIAL. IV ×2 (21:37)
[2017-05-26] MEDS: methylPREDNISolone SOD SUCC PF 125 MG/2 ML VIAL. IV ×2 (21:39)
[2017-05-26] MEDS: diphenhydrAMINE 50 MG/ML VIAL IVP ×2 (21:40)
[2017-05-26] MEDS: IV NORMAL SALINE 1000ML BAG 1,000 ML IV ×2 (21:42)
== END 2017-05-26 23:17 | disposition home or self-care (01) ==
LOC: ER 20:28
DX: O26.891 Other specified pregnancy related conditions, first trimester (principal); G43.909 Migraine, unspecified, not intractable, without status migrainosus; J45.909 Unspecified asthma, uncomplicated; F43.10 Post-traumatic stress disorder, unspecified; F41.9 Anxiety disorder, unspecified; F41.0 Panic disorder [episodic paroxysmal anxiety]; Z88.0 Allergy status to penicillin; Z88.8 Allergy status to other drugs, medicaments and biological substances; Z91.013 Allergy to seafood; Z91.018 Allergy to other foods
CPT/HCPCS: 81025; 96361; 96374; 96375; 99284-25; J1200; J2765; J2930; J7030

== ENCOUNTER 2017-09-12 09:05 | Observation (INO) | payer OTHER ==
[2017-09-12] MEDS: IV RINGERS,LACTATED 1000ML 1,000 ML IV ×2 (10:19→16:33)
[2017-09-12 11:41] LABS: BILIRUBIN,URINE NEGATIVE (NEG); CLARITY,URINE CLEAR; COLOR,URINE YELLOW; GLUCOSE,URINE NEGATIVE (NEG); NITRITE,URINE NEGATIVE (NEG); PH,URINE 7.5; PROTEIN,URINE NEGATIVE (NEG-TRACE)
[2017-09-12 11:51] LABS: SQUAMOUS EPITHELIAL CELL,UR MANY /LPF
[2017-09-12 11:52] LABS: BACTERIA,URINE MANY /HPF (0-FEW); WBC,URINE >40 /HPF (0-4)
[2017-09-12] MEDS: CLINDAMYCIN 900MG PREMIX 50 ML IV ×2 (12:12→19:30)
[2017-09-12] MEDS: PROMETHAZINE 12.5 MG TABLET. PO ×2 (13:29→19:29)
[2017-09-12] MEDS: hydrOXYzine PAMOATE 25 MG CAPSULE PO (18:46)
[2017-09-12] MEDS: SERTRALINE 50 MG TABLET. PO (19:00)
[2017-09-12] MEDS: ACETAMINOPHEN 325 MG TABLET. PO (19:51)
[2017-09-13] MEDS: IV RINGERS,LACTATED 1000ML 1,000 ML IV (01:21)
[2017-09-13 03:26] LABS: BILIRUBIN,URINE NEGATIVE (NEG); CLARITY,URINE TURBID; COLOR,URINE YELLOW; GLUCOSE,URINE NEGATIVE (NEG); NITRITE,URINE NEGATIVE (NEG); PH,URINE 7.5; PROTEIN,URINE NEGATIVE (NEG-TRACE); UROBILINOGEN,URINE 0.2 mg/dL (0.2 mg/dL)
[2017-09-13] MEDS: CLINDAMYCIN 900MG PREMIX 50 ML IV (03:34)
[2017-09-13 03:40] LABS: BARBITURATES NEG (NEG); BENZODIAZEPINES NEG (NEG); CANNABINOIDS POS (NEG); COCAINE NEG (NEG); METHADONE NEG (NEG); OPIATES NEG (NEG); PHENCYCLIDINE NEG (NEG)
[2017-09-13 03:50] LABS: AMPHETAMINE/METHAMPHETAMINE NEG (NEG); ETHANOL, URINE NEG (NEG)
== END 2017-09-13 09:35 | disposition home or self-care (01) ==
LOC: 3 SO LND 09:05
DX: O46.92 Antepartum hemorrhage, unspecified, second trimester (principal); O26.892 Other specified pregnancy related conditions, second trimester; R10.2 Pelvic and perineal pain; R10.9 Unspecified abdominal pain; Z3A.22 22 weeks gestation of pregnancy
CPT/HCPCS: 80307; 81001; 81003; 87086; 96361; 96365; 96375; 96376; G0378; G0379; J3490; J7120; Q0169; Q0177

== ENCOUNTER 2017-11-03 15:41 | Observation (INO) | payer OTHER ==
[2017-11-03] MEDS ORDERED: IV RINGERS,LACTATED 1000ML 1,000 ML IV (16:27)
[2017-11-03 16:51] LABS: BILIRUBIN,URINE NEGATIVE (NEG); CLARITY,URINE CLEAR; COLOR,URINE YELLOW; GLUCOSE,URINE NEGATIVE (NEG); NITRITE,URINE NEGATIVE (NEG); PROTEIN,URINE NEGATIVE (NEG-TRACE); UROBILINOGEN,URINE 0.2 mg/dL (0.2 mg/dL)
[2017-11-03 16:58] LABS: AMPHETAMINE/METHAMPHETAMINE NEG (NEG); BARBITURATES NEG (NEG); BENZODIAZEPINES NEG (NEG); CANNABINOIDS POS (NEG); COCAINE NEG (NEG); ETHANOL, URINE NEG (NEG); METHADONE NEG (NEG); OPIATES NEG (NEG); PHENCYCLIDINE NEG (NEG)
[2017-11-03] MEDS: ACETAMINOPHEN 325 MG TABLET. PO (17:24)
[2017-11-03] MEDS: hydrOXYzine PAMOATE 25 MG CAPSULE PO (17:25)
== END 2017-11-03 20:15 | disposition home or self-care (01) ==
LOC: 3 SO LND 15:41
DX: O62.9 Abnormality of forces of labor, unspecified (principal); O46.93 Antepartum hemorrhage, unspecified, third trimester; Z3A.28 28 weeks gestation of pregnancy
CPT/HCPCS: 80307; 81003; G0378; G0379; Q0177

== ENCOUNTER 2018-03-26 10:56 | Emergency (ER) | payer OTHER ==
[~2018-03-26] VITALS: Ht 165.1 cm; Wt 99.8 kg
[~2018-03-26 10:56] MED LIST changes: -HYDR-2758 PO; +HYDR-2761 PO; +HYDR-3164 PO; -HYDR-971 PO
[2018-03-26] MEDS ORDERED: IV NORMAL SALINE 1000ML BAG 1,000 ML IV ONE (11:30)
[2018-03-26] MEDS ORDERED: PROCHLORPERAZINE 10 MG/2 ML VIAL. IV ONE (11:30)
[2018-03-26] MEDS ORDERED: METOCLOPRAMIDE HCL 10 MG/2 ML VIAL. IV ONE (11:30)
[2018-03-26 11:40] LABS: BASO # 0.1 x10^3/uL (0.0-0.2); BASO % 1 % (0-3); EOS # 0.2 x10^3/uL (0.0-0.7); EOS % 2 % (0-3); HEMATOCRIT 37.9 % (36.0-47.0); HEMOGLOBIN 12.8 g/dL (12.0-15.5); LYMPH # 2.2 x10^3/uL (1.0-4.8); LYMPH % 28 % (24-48); MEAN CORPUSCULAR HEMOGLOBIN 29 pg (25-35); MEAN CORPUSCULAR HGB CONC 34 g/dL (31-37); MEAN CORPUSCULAR VOLUME 87 fL (79-100); MONO # 0.6 x10^3/uL (0.0-1.1); MONO % 8 % (0-9); NEUT # 4.6 x10^3uL (1.8-7.7); NEUT % 61 % (31-73); PLATELET COUNT 239 x10^3/uL (140-400); RED BLOOD COUNT 4.38 x10^6/uL (3.50-5.40); RED CELL DISTRIBUTION WIDTH 14.9 % (11.5-14.5); WHITE BLOOD COUNT 7.6 x10^3/uL (4.0-11.0)
[2018-03-26 12:13] LABS: CALCIUM 9.1 mg/dL (8.5-10.1); CREATININE 0.8 mg/dL (0.6-1.0); GFR 88.9; POTASSIUM 3.9 mmol/L (3.5-5.1)
[2018-03-26 12:19] LABS: ALBUMIN 3.8 g/dL (3.4-5.0); ALBUMIN/GLOBULIN RATIO 1.2 (1.0-1.7); TOTAL BILIRUBIN 0.6 mg/dL (0.2-1.0); TOTAL PROTEIN 6.9 g/dL (6.4-8.2)
[2018-03-26 12:23] LABS: BILIRUBIN,URINE NEGATIVE (NEG); CLARITY,URINE CLOUDY; COLOR,URINE YELLOW; NITRITE,URINE NEGATIVE (NEG); PH,URINE 6.5; PROTEIN,URINE NEGATIVE (NEG-TRACE); UROBILINOGEN,URINE 0.2 mg/dL (0.2 mg/dL)
[2018-03-26 12:40] VITALS: BP 103/51
[2018-03-26 12:43] LABS: SQUAMOUS EPITHELIAL CELL,UR MOD /LPF
[2018-03-26 12:48] LABS: RBC,URINE 0 /HPF (0-2); WBC,URINE 20-40 /HPF (0-4)
[2018-03-26 12:49] LABS: BACTERIA,URINE 0 /HPF (0-FEW)
[2018-03-26] MEDS ORDERED: NITR100C62 PO (12:59)
[2018-03-26] MEDS ORDERED: PROM25SU32 RC (12:59)
--- NOTE | 2018-03-26 12:59 | PHYS DOC ---
Past Medical History Past Medical History: Anxiety, Asthma, Migraines, Other Additional Past Medical Histor: BRADYCARDIA, PANIC ATTACK, PTSD, DRUG ABUSE Past Surgical History: Cholecystectomy, Other Additional Past Surgical Histo: LEFT FOOT SURGERY FRX REPAIR WITH HARDWARE Alcohol Use: None Drug Use: Marijuana Social History Narrative: UDS POS FOR CANNABINOIDS 06/06/17 Adult General Chief Complaint Chief Complaint: NAUSEA/VOMITING/DIARRHA HPI HPI Patient is a 23 year old female who presents to the emergency Department today complaining of nausea and vomiting since last night. She also reports having a crusted lesion on her chin that is itchy and painful to touch for the last week. She denies any abdominal pain, diarrhea, or constipation. She states that there is a swollen tender area underneath her chin in addition to the lesion on her face. She has vomited 5 times in the last 24 hours. She denies any dysuria, hematuria, or irregular vaginal discharge, or vaginal itching. Patient states she has noticed a decreased amount of urine output recently. She reports that she had her tubal ligation done the week after Thanksgiving denies any concerns of . Review of Systems Review of Systems Constitutional: Denies fever or chills [] HENT: Denies nasal congestion or sore throat; reports swollen tender area under chin [] Respiratory: Denies cough or shortness of breath [] Cardiovascular: No additional information not addressed in HPI [] GI: See HPI : Denies dysuria or hematuria, See HPI [] Musculoskeletal: Denies back pain Integument: Denies rash or skin lesions [] Neurologic: Denies headache, focal weakness or sensory changes [] All other systems were reviewed and found to be within normal limits, except as documented in this note. Current Medications Current Medications Current Medications Medications (Trade) Dose Ordered Sig/Lloyd Start Time Stop Time Status Last Admin Dose Admin Metoclopramide HCl (Reglan Vial) 10 mg 1X ONCE 03/26/18 11:30 03/26/18 11:31 DC 03/26/18 11:34 10 MG Prochlorperazine Edisylate (Compazine) 10 mg 1X ONCE 03/26/18 11:30 03/26/18 11:30 DC Sodium Chloride 1,000 ml @ 1,000 mls/hr 1X ONCE 03/26/18 11:30 03/26/18 12:29 DC 03/26/18 11:34 1,000 MLS/HR Allergies Allergies Allergies Coded Allergies Type Severity Reaction Last Updated Verified Fish Containing Products Allergy Intermediate HIVES- TUNA 04/23/16 Yes Penicillins Allergy Intermediate Hives 06/16/16 Yes ondansetron Allergy Intermediate 04/23/16 Yes Uncoded Allergies Type Severity Reaction Last Updated Verified wiley Allergy Severe Hives 11/24/16 bologna Allergy Severe Hives 11/24/16 hotdogs Allergy Severe Hives 11/24/16 Physical Exam Physical Exam Constitutional: Well developed, well nourished, no acute distress, non-toxic appearance. [] HENT: Normocephalic, atraumatic, bilateral external ears normal, oropharynx moist, no oral exudates, nose normal. [] Eyes: conjunctiva normal, no discharge. [] Neck: Normal range of motion, submental lymphnode enlargement and tenderness, no stridor. [] Cardiovascular:Heart rate regular rhythm, no murmur [] Lungs & Thorax: Bilateral breath sounds clear to auscultation [] Abdomen: Bowel sounds normal, soft, no tenderness, no masses, no pulsatile masses. [] Skin: Warm, dry, honey crusted patch of erythremic skin noted to chin 2cm x 1 cm consistent with impetigo Back: No CVA tenderness. [] Extremities: No tenderness, no cyanosis, no clubbing, ROM intact, no edema. [] Neurologic: Alert and oriented X 3, normal motor function, normal sensory function, no focal deficits noted. [] Psychologic: Affect normal, judgement normal, mood normal. [] Current Patient Data Vital Signs Vital Signs Date Time Temp Pulse Resp B/P (MAP) Pulse Ox O2 Delivery O2 Flow Rate FiO2 03/26/18 12:40 58 16 103/51 (68) 99 Room Air 03/26/18 11:05 98.3 98.3 Lab Values Laboratory Tests Test 03/26/18 11:25 03/26/18 12:10 White Blood Count 7.6 x10^3/uL (4.0-11.0) Red Blood Count 4.38 x10^6/uL (3.50-5.40) Hemoglobin 12.8 g/dL (12.0-15.5) Hematocrit 37.9 % (36.0-47.0) Mean Corpuscular Volume 87 fL (79-100) Mean Corpuscular Hemoglobin 29 pg (25-35) Mean Corpuscular Hemoglobin Concent 34 g/dL (31-37) Red Cell Distribution Width 14.9 % (11.5-14.5) H Platelet Count 239 x10^3/uL (140-400) Neutrophils (%) (Auto) 61 % (31-73) Lymphocytes (%) (Auto) 28 % (24-48) Monocytes (%) (Auto) 8 % (0-9) Eosinophils (%) (Auto) 2 % (0-3) Basophils (%) (Auto) 1 % (0-3) Neutrophils # (Auto) 4.6 x10^3uL (1.8-7.7) Lymphocytes # (Auto) 2.2 x10^3/uL (1.0-4.8) Monocytes # (Auto) 0.6 x10^3/uL (0.0-1.1) Eosinophils # (Auto) 0.2 x10^3/uL (0.0-0.7) Basophils # (Auto) 0.1 x10^3/uL (0.0-0.2) Sodium Level 139 mmol/L (136-145) Potassium Level 3.9 mmol/L (3.5-5.1) Chloride Level 103 mmol/L (98-107) Carbon Dioxide Level 23 mmol/L (21-32) Anion Gap 13 (6-14) Blood Urea Nitrogen 13 mg/dL (7-20) Creatinine 0.8 mg/dL (0.6-1.0) Estimated GFR (Cockcroft-Gault) 88.9 BUN/Creatinine Ratio 16 (6-20) Glucose Level 92 mg/dL (70-99) Calcium Level 9.1 mg/dL (8.5-10.1) Total Bilirubin 0.6 mg/dL (0.2-1.0) Aspartate Amino Transferase (AST) 14 U/L (15-37) L Alanine Aminotransferase (ALT) 25 U/L (14-59) Alkaline Phosphatase 85 U/L (46-116) Total Protein 6.9 g/dL (6.4-8.2) Albumin 3.8 g/dL (3.4-5.0) Albumin/Globulin Ratio 1.2 (1.0-1.7) Lipase 113 U/L (73-393) Urine Collection Type Unknown Urine Color Yellow Urine Clarity Cloudy Urine pH 6.5 Urine Specific Showell 1.015 Urine Protein Negative mg/dL (NEG-TRACE) Urine Glucose (UA) Negative mg/dL (NEG) Urine Ketones (Stick) Negative mg/dL (NEG) Urine Blood Negative (NEG) Urine Nitrite Negative (NEG) Urine Bilirubin Negative (NEG) Urine Urobilinogen Dipstick 0.2 mg/dL (0.2 mg/dL) Urine Leukocyte Esterase Moderate (NEG) Urine RBC 0 /HPF (0-2) Urine WBC 20-40 /HPF (0-4) Urine Squamous Epithelial Cells Mod /LPF Urine Bacteria 0 /HPF (0-FEW) Urine Mucus Slight /LPF Laboratory Tests 03/26/18 11:25 Laboratory Tests 03/26/18 11:25 EKG EKG [] Radiology/Procedures Radiology/Procedures [] Course & Med Decision Making Course & Med Decision Making Pertinent Labs and Imaging studies reviewed. (See chart for details) Dx: nausea, vomiting, UTI, impetigo Pt was given 1 L of ns and 10 mg of reglan in the ER reported feeling better after these medications. UA concerning for UTI, CMP and CBC unremarkable. Prescriptions for nitrofurantoin and phenergan suppositories. Patient verbalized an understanding of home care, medications, follow-up, and return to ED instructions and was in agreement with the plan of care. [facility] [] Dragon Disclaimer Dragon Disclaimer This electronic medical record was generated, in whole or in part, using a voice recognition dictation system. Departure Departure Impression: Primary Impression: UTI (urinary tract infection) Additional Impressions: Nausea & vomiting Impetigo Disposition: HOME, SELF-CARE Condition: STABLE Referrals: NO PCP (PCP) Patient Instructions: Nausea and Vomiting, Lgye-[id number], Urinary Tract Infection, Uszz-[id number] Additional Instructions: Fill prescriptions and use them as directed. Recommend clear fluids for the next 24 hours. Then you may advance to bland foods such as bananas, rice, applesauce, and dry toast. Follow-up with your primary care doctor if symptoms persist. Return to the emergency room if your symptoms worsen. Scripts Mupirocin (MUPIROCIN OINTMENT) 22 Gm Oint...g. 1 DEIRDRE TP TID for WOUND CARE, #1 TUBE Prov: MARY BETH RODRIGUES STRUCTURAL IRONWORKER 03/26/18 Promethazine HCl (Phenergan) 25 Mg Supp.rect 25 MG RC TID PRN PRN for NAUSEA/VOMITING for 2 Days, #6 SUPP.RECT 0 Refills Prov: MARY BETH RODRIGUES STRUCTURAL IRONWORKER 03/26/18 Nitrofurantoin Monohyd/M-Cryst (MACROBID 100 MG CAPSULE) 100 Mg Capsule 1 CAP PO BID, #10 CAP 0 Refills Prov: MARY BETH RODRIGUES [employer]UCTURAL IRONWORKER 03/26/18 Problem Qualifiers Primary Impression: UTI (urinary tract infection) Urinary tract infection type: site unspecified Hematuria presence: without hematuria Qualified Codes: N39.0 - Urinary tract infection, site not specified Additional Impressions: Nausea & vomiting Vomiting type: unspecified Vomiting Intractability: unspecified Qualified Codes: R11.2 - Nausea with vomiting, unspecified MARY BETH RODRIGUES STRUCTURAL IRONWORKER Mar 26, 2018 12:59
[2018-03-26] MEDS ORDERED: MUPI22OI2 TP (16:57)
== END 2018-03-26 13:08 | disposition home or self-care (01) ==
LOC: ER 10:56
DX: N39.0 Urinary tract infection, site not specified (principal); R11.2 Nausea with vomiting, unspecified; L01.00 Impetigo, unspecified; G43.909 Migraine, unspecified, not intractable, without status migrainosus; J45.909 Unspecified asthma, uncomplicated; F43.10 Post-traumatic stress disorder, unspecified; Z90.49 Acquired absence of other specified parts of digestive tract; Z88.0 Allergy status to penicillin; Z88.5 Allergy status to narcotic agent; Z88.8 Allergy status to other drugs, medicaments and biological substances; Z91.013 Allergy to seafood
CPT/HCPCS: 36415; 80053; 81001; 83690; 85025; 87086; 96361; 96374; 99283; J2765; J7030; 96375

== ENCOUNTER 2018-09-20 15:42 | Emergency (ER) | payer SELFPAY ==
[~2018-09-20] VITALS: Ht 167.6 cm; Wt 90.7 kg
[~2018-09-20 15:42] MED LIST changes: +MUPI22OI2 TP; +PROM25SU32 RC
[2018-09-20 15:47] VITALS: BP 118/61
--- NOTE | 2018-09-20 15:57 | PHYS DOC ---
Past Medical History Past Medical History: Anxiety, Asthma, Migraines, Other Additional Past Medical Histor: BRADYCARDIA, PANIC ATTACK, PTSD, DRUG ABUSE Past Surgical History: Cholecystectomy, Other Additional Past Surgical Histo: LEFT FOOT SURGERY FRX REPAIR WITH HARDWARE Alcohol Use: None Drug Use: Marijuana Adult General Chief Complaint Chief Complaint: HAND PROBLEM HPI HPI 23-year-old female presents to ER for complaints of left hand and wrist injury. Patient states she accidentally struck her left lower extremity on a cabinet just prior to arrival. Pt reports since injury she has had swelling to the top of her left hand. She reports she has taken ibuprofen. Pt is right hand dominant. Review of Systems Review of Systems Musculoskeletal: Reports lt hand/wrist pain with swelling to top of lt hand Integument: Denies abrasions Neurologic: Denies focal weakness or sensory changes [] All other systems were reviewed and found to be within normal limits, except as documented in this note. Allergies Allergies Allergies Coded Allergies Type Severity Reaction Last Updated Verified Fish Containing Products Allergy Intermediate HIVES- TUNA 04/23/16 Yes Penicillins Allergy Intermediate Hives 06/16/16 Yes ondansetron Allergy Intermediate 04/23/16 Yes Uncoded Allergies Type Severity Reaction Last Updated Verified wiley Allergy Severe Hives 11/24/16 bologna Allergy Severe Hives 11/24/16 hotdogs Allergy Severe Hives 11/24/16 Physical Exam Physical Exam Constitutional: Well developed, well nourished, no acute distress, non-toxic appearance. [] HENT: Normocephalic, atraumatic, oropharynx moist Eyes: Pupils equal, conjunctiva normal, no discharge. [] Neck: Normal range of motion, supple Cardiovascular: Heart rate regular Lungs & Thorax: Resp. equal/nonlabored Skin: Warm, dry Extremities: No cyanosis, no clubbing, ROM decreased lt wrist/hand- swelling dorsal surface of hand with ecchymosis, no open wounds. Lt wrist tender- no palp. deformities. 2+ radial. Pt is able to move lt fingers/wrist but has increased pain w/movements so is reluctant w/movements. Neurologic: Alert and oriented X 3, normal motor function, normal sensory function, no focal deficits noted. [] Psychologic: Affect normal, judgement normal, mood normal. [] Current Patient Data Vital Signs Vital Signs Date Time Temp Pulse Resp B/P (MAP) Pulse Ox O2 Delivery O2 Flow Rate FiO2 09/20/18 15:47 97.9 69 18 118/61 (80) 99 Room Air 97.9 EKG EKG [] Radiology/Procedures Radiology/Procedures []PROCEDURE: HAND LEFT 3V HAND LEFT 3V, WRIST 3V LEFT History: Left hand and wrist pain after injury. Three-view left wrist No evidence of an acute fracture. No aggressive bone destruction. Joint spaces and alignment appear intact. 3 view left hand No evidence of acute fracture. No aggressive bone destruction. Joint spaces and alignment are intact. Mild soft tissue swelling at the posterior hand. IMPRESSION: No evidence of acute fracture or dislocation. Mild posterior hand soft tissue swelling or hematoma. Electronically signed by: Parvin Mehta MD (09/20/2018 4:33 PM) [facility] DICTATED and SIGNED BY: PARVIN MEHTA MD DATE: 09/20/18 1633 Course & Med Decision Making Course & Med Decision Making Pertinent Imaging studies reviewed. (See chart for details) 1640: Pt was evaluated in the ER for complaints of left hand and wrist injury. X-ray with no acute findings this was discussed with patient. As patient's injury occurred at work she was advised on following up with her employer to verify who she should follow-up with. On reevaluation patient is PMS intact in left upper extremity. This provider applied Lopez wrap to left hand and following application PMS in upper left extremity. Advised patient on following up with her employer to see who to follow up with. Education provided on signs and symptoms to return to ER. Discharge instructions were discussed. Dragon Disclaimer Dragon Disclaimer This electronic medical record was generated, in whole or in part, using a voice recognition dictation system. Departure Departure Impression: Primary Impression: Hand injury Additional Impression: Left wrist injury Disposition: HOME, SELF-CARE Condition: STABLE Referrals: NO PCP (PCP) Patient Instructions: Elastic Bandage and RICE, Hand Injuries, Wrist Pain Additional Instructions: Follow-up with your employer to determine who to follow-up with. If symptoms pe rsist follow-up with an orthopedic doctor for reevaluation and further care. Tylenol and/or ibuprofen as needed for pain as directed on container. Problem Qualifiers KYLER PHAM HUMAN RESOURCES DIRECTOR Sep 20, 2018 15:57
--- NOTE | 2018-09-20 16:36 | RAD ---
HAND LEFT 3V, WRIST 3V LEFT History: Left hand and wrist pain after injury. Three-view left wrist No evidence of an acute fracture. No aggressive bone destruction. Joint spaces and alignment appear intact. 3 view left hand No evidence of acute fracture. No aggressive bone destruction. Joint spaces and alignment are intact. Mild soft tissue swelling at the posterior hand. IMPRESSION: No evidence of acute fracture or dislocation. Mild posterior hand soft tissue swelling or hematoma. Electronically signed by: Adriano Mehta MD (09/20/2018 4:33 PM) [facility]
== END 2018-09-20 17:01 | disposition home or self-care (01) ==
LOC: ER 15:42
DX: G43.909 Migraine, unspecified, not intractable, without status migrainosus (principal); S60.212A Contusion of left wrist, initial encounter; F41.9 Anxiety disorder, unspecified; J45.909 Unspecified asthma, uncomplicated; Z90.49 Acquired absence of other specified parts of digestive tract; Z88.0 Allergy status to penicillin; Z88.8 Allergy status to other drugs, medicaments and biological substances; Z91.013 Allergy to seafood; Z91.018 Allergy to other foods; W22.8XXA Striking against or struck by other objects, initial encounter; Y93.89 Activity, other specified; Y92.89 Other specified places as the place of occurrence of the external cause; Y99.8 Other external cause status
CPT/HCPCS: 73110; 73130; 99284

== ENCOUNTER 2019-03-07 05:09 | Emergency (ER) | payer MEDICAID ==
[~2019-03-07] VITALS: Ht 167.6 cm; Wt 81.6 kg
[2019-03-07] MEDS ORDERED: SULF1TAB24 PO (05:29)
[2019-03-07] MEDS ORDERED: CLIN300C8 PO (05:29)
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
[2019-03-07] MEDS ORDERED: HYDROcodone/APAP 5/325MG 1 TAB TABLET PO ONE (06:00)
[2019-03-07] MEDS ORDERED: DIPHTH,PERTUSS(ACELL),TET TOX 0.5 ML DISP.SYRIN. VAX IM ONE (06:00)
[2019-03-07] MEDS ORDERED: metroNIDAZOLE 500 MG TABLET PO ONE (06:30)
--- NOTE | 2019-03-07 06:59 | RAD ---
INDICATION: Trauma COMPARISON: None. TECHNIQUE: Axial CT images obtained through the head, cervical spine and face. One or more of the following individualized dose reduction techniques were utilized for this examination: 1. Automated exposure control; 2. Adjustment of the mA and/or kV according to patient size; 3. Use of iterative reconstruction technique. FINDINGS: Head: No midline shift. Suprasellar cistern is not effaced. No evidence of hydrocephalus. No acute intracranial hemorrhage. Cervical spine: There is some limitation secondary to motion artifact. A definite acute fracture or dislocation is not seen. Facial: Paranasal sinuses are well aerated. There is some nasal septal bowing to the right. No retro-orbital mass or hematoma. IMPRESSION: * No acute intracranial hemorrhage. * No definite cervical spine fracture. * Nasal septal deviation. Electronically signed by: Dean Ramirez MD (03/07/2019 6:56 AM) [facility]
[2019-03-07 07:13] VITALS: BP 125/64
== END 2019-03-07 07:23 | disposition home or self-care (01) ==
LOC: ER 05:09
DX: S00.83XA Contusion of other part of head, initial encounter (principal); S41.159A Open bite of unspecified upper arm, initial encounter; G43.909 Migraine, unspecified, not intractable, without status migrainosus; J45.909 Unspecified asthma, uncomplicated; F41.9 Anxiety disorder, unspecified; Z88.0 Allergy status to penicillin; Z88.5 Allergy status to narcotic agent; Z91.013 Allergy to seafood; Z91.018 Allergy to other foods; Z88.8 Allergy status to other drugs, medicaments and biological substances; Y04.1XXA Assault by human bite, initial encounter; Y93.89 Activity, other specified; Y92.89 Other specified places as the place of occurrence of the external cause; Y99.8 Other external cause status
CPT/HCPCS: 70450; 70486; 72125; 90471; 90715; 99284-25

== ENCOUNTER 2019-06-06 14:38 | Emergency (ER) | payer MEDICAID ==
[~2019-06-06] VITALS: Ht 167.6 cm; Wt 81.8 kg
[~2019-06-06 14:38] MED LIST changes: +CLIN300C8 PO
[2019-06-06 15:13] VITALS: BP 149/73
[2019-06-06 15:42] LABS: BILIRUBIN,URINE NEGATIVE (NEG); CLARITY,URINE CLEAR; COLOR,URINE YELLOW; NITRITE,URINE NEGATIVE (NEG); PROTEIN,URINE NEGATIVE (NEG-TRACE); UROBILINOGEN,URINE 0.2 mg/dL (0.2 mg/dL)
[2019-06-06 15:52] LABS: SQUAMOUS EPITHELIAL CELL,UR MANY /LPF
[2019-06-06 15:53] LABS: BACTERIA,URINE MOD /HPF (0-FEW); RBC,URINE 0 /HPF (0-2); WBC,URINE >40 /HPF (0-4)
[2019-06-06] MEDS ORDERED: AZITHROMYCIN 250 MG TABLET. PO ONE (16:30)
[2019-06-06] MEDS ORDERED: cefTRIAXone IM 250 MG VIAL IM ONE (16:30)
--- NOTE | 2019-06-06 16:32 | PHYS DOC ---
Past Medical History Past Medical History: Anxiety, Asthma, Migraines, Other Additional Past Medical Histor: BRADYCARDIA, PANIC ATTACK, PTSD, DRUG ABUSE (MARY BETH RODRIGUES APRN) Past Surgical History: Cholecystectomy, Tubal ligation, Other Additional Past Surgical Histo: LEFT FOOT SURGERY FRX REPAIR WITH HARDWARE (MARY BETH RODRIGUES APRN) Smoking Status: Current Every Day Smoker Alcohol Use: None Drug Use: Marijuana (MARY BETH RODRIGUES APRN) Adult General Chief Complaint Chief Complaint: SEXUALLY TRANSMITTED DISEASE HPI HPI Patient is a 24 year old female who presents to the ER with complaints of needi ng to be testing for sexually transmitted infections. She reports that her significant other was told by another female today to go get treated for trichamoniasis. Pt denies any pelvic pain, back pain, abdominal pain, dysuria, hematuria, abnormal vaginal discharge, vaginal bleeding, vaginal odor, dysuria, hematuria, or increased urine frequency. She denies any pain or complaints at this time. (MARY BETH RODRIGUES APRN) Review of Systems Review of Systems Constitutional: Denies fever or chills [] Eyes: Denies redness, or eye pain [] HENT: Denies nasal congestion or sore throat [] Respiratory: Denies cough or shortness of breath [] Cardiovascular: No additional information not addressed in HPI [] GI: Denies abdominal pain, nausea, vomiting, or diarrhea [] : Denies dysuria or hematuria [] Musculoskeletal: Denies back pain Integument: Denies rash or skin lesions [] Neurologic: Denies headache All other systems were reviewed and found to be within normal limits, except as documented in this note. (MARY BETH RODRIGUES APRN) Current Medications Current Medications Current Medications Medications (Trade) Dose Ordered Sig/Lloyd Start Time Stop Time Status Last Admin Dose Admin Azithromycin (Zithromax) 1,000 mg 1X ONCE 06/06/19 16:30 06/06/19 16:31 DC Ceftriaxone Sodium (Rocephin Im) 250 mg 1X ONCE 06/06/19 16:30 06/06/19 16:31 DC (TAYLOR PIMENTEL MD) Allergies Allergies Allergies Coded Allergies Type Severity Reaction Last Updated Verified Fish Containing Products Allergy Intermediate HIVES- TUNA 04/23/16 Yes Penicillins Allergy Intermediate Hives 06/16/16 Yes ondansetron Allergy Intermediate 04/23/16 Yes Uncoded Allergies Type Severity Reaction Last Updated Verified wiley Allergy Severe Hives 11/24/16 bologna Allergy Severe Hives 11/24/16 hotdogs Allergy Severe Hives 11/24/16 (TAYLOR PIMENTEL MD) Physical Exam Physical Exam Constitutional: Well developed, well nourished, no acute distress, non-toxic appearance. [] HENT: Normocephalic, atraumatic, bilateral external ears normal, oropharynx moist, no oral exudates, nose normal. [] Eyes: PERRLA, EOMI, conjunctiva normal, no discharge. [] Neck: Normal range of motion, no tenderness, supple, no stridor. [] Cardiovascular:Heart rate regular rhythm, no murmur [] Lungs & Thorax: Bilateral breath sounds clear to auscultation [] Abdomen: Bowel sounds normal, soft, no tenderness, no masses, no pulsatile masses. [] Skin: Warm, dry, no erythema, no rash. [] Back: No tenderness, no CVA tenderness. [] Extremities: No tenderness, no cyanosis, no clubbing, ROM intact, no edema. [] Neurologic: Alert and oriented X 3, normal motor function, normal sensory function, no focal deficits noted. [] Psychologic: Affect normal, judgement normal, mood normal. [] (MARY BETH RODRIGUES APRN) Current Patient Data Vital Signs Vital Signs Date Time Temp Pulse Resp B/P (MAP) Pulse Ox O2 Delivery O2 Flow Rate FiO2 06/06/19 15:13 98.4 93 18 149/73 (98) 98 Room Air 98.4 (TAYLOR PIMENTEL MD) Lab Values Laboratory Tests Test 06/06/19 15:00 06/06/19 15:02 Urine Collection Type Unknown Urine Color Yellow Urine Clarity Clear Urine pH 6.0 Urine Specific Powers 1.010 Urine Protein Negative mg/dL (NEG-TRACE) Urine Glucose (UA) Negative mg/dL (NEG) Urine Ketones (Stick) Negative mg/dL (NEG) Urine Blood Negative (NEG) Urine Nitrite Negative (NEG) Urine Bilirubin Negative (NEG) Urine Urobilinogen Dipstick 0.2 mg/dL (0.2 mg/dL) Urine Leukocyte Esterase Large (NEG) Urine RBC 0 /HPF (0-2) Urine WBC >40 /HPF (0-4) Urine Squamous Epithelial Cells Many /LPF Urine Bacteria Mod /HPF (0-FEW) POC Urine HCG, Qualitative Hcg negative (Negative) Microbiology 06/06/19 Wet Prep - Final, Complete (TAYLOR PIMENTEL MD) EKG EKG [] (MARY BETH RODRIGUES APRN) Radiology/Procedures Radiology/Procedures [] (MARY BETH RODRIGUES APRN) Course & Med Decision Making Course & Med Decision Making Pertinent Labs and Imaging studies reviewed. (See chart for details) 1630- Advised patient of bacterial vaginosis findings and need for treatment. Pt refused to stay and be treated. Pt refused to stay for prescription. I encouraged her to go to the local health department for testing before she left AMA. [] (MARY BETH RODRIGUES APRN) Course & Med Decision Making Staff Physician Addendum: I was working in the ER during the course of this patient's visit. I was available for consultation as needed, but I was not directly involved in the care of this patient. (TAYLOR PIMENTEL MD) Dragon Disclaimer Dragon Disclaimer This electronic medical record was generated, in whole or in part, using a voice recognition dictation system. (MARY BETH RODRIGUES APRN) Departure Departure Impression: Primary Impression: Bacterial vaginosis Additional Impressions: Contact with and (suspected) exposure to infections with a predominantly sexual mode of transmission Left against medical advice Disposition: 07 AGAINST MEDICAL ADVICE Condition: GOOD Referrals: NO PCP (PCP) Problem Qualifiers MARY BETH RODRIGUES APRN Jun 06, 2019 16:32 TAYLOR PIMENTEL MD Jun 07, 2019 06:15
[2019-06-07 18:09] LABS: GC PROBE Negative (Negative)
== END 2019-06-06 16:48 | disposition left against medical advice (07) ==
LOC: ER 14:38
DX: N76.0 Acute vaginitis (principal); B96.89 Other specified bacterial agents as the cause of diseases classified elsewhere; Z20.2 Contact with and (suspected) exposure to infections with a predominantly sexual mode of transmission; G43.909 Migraine, unspecified, not intractable, without status migrainosus; J45.909 Unspecified asthma, uncomplicated; Z90.49 Acquired absence of other specified parts of digestive tract; Z98.51 Tubal ligation status; F17.200 Nicotine dependence, unspecified, uncomplicated; Z88.0 Allergy status to penicillin; Z88.5 Allergy status to narcotic agent; Z91.013 Allergy to seafood; Z91.018 Allergy to other foods
CPT/HCPCS: 81001; 81025; 87491; 87591; 99283; Q0111

== ENCOUNTER 2019-10-24 10:50 | Emergency (ER) | payer MEDICAID ==
[~2019-10-24] VITALS: Ht 170.2 cm; Wt 90.0 kg
[2019-10-24 11:05] VITALS: BP 112/67
[2019-10-24] MEDS ORDERED: CLIN300C8 PO (11:12)
--- NOTE | 2019-10-24 11:13 | PHYS DOC ---
Past Medical History Past Medical History: Anxiety, Asthma, Migraines, Other Additional Past Medical Histor: BRADYCARDIA, PANIC ATTACK, PTSD, DRUG ABUSE (CHRISTIAN VILLASEÑOR TUBE WINDER HAND) Past Surgical History: Cholecystectomy, Tubal ligation, Other Additional Past Surgical Histo: LEFT FOOT SURGERY FRX REPAIR WITH HARDWARE (CHRISTIAN VILLASEÑOR TUBE WINDER HAND) Smoking Status: Current Every Day Smoker Alcohol Use: None Drug Use: Marijuana (CHRISTIAN VILLSAEÑOR TUBE WINDER HAND) General Adult EDM: Chief Complaint: SKIN PROBLEM HPI: HPI: Patient is a 24 year old female who presents with states almost 2 years ago she had a tubal ligation at [facility]. She states that they stated that her bellybutton would close up on its own so they did not sew it up. She states since then intermittently she will have foul-smelling purulent drainage. She states that just in the last couple days it is become tender. She denies fevers, nausea, vomiting, diarrhea, headache, dizziness, cough. Patients bellybutton skin is a pink color with slight pinkness on the outside of the bellybutton around it. No induration or drainage or cellulitis is seen. Just around the bellybutton with palpation there is tenderness. When looking down inside the bellybutton there is no opening or drainage seen. She rates her pain a 6 out of 10. (CHRISTIAN VILLASEÑOR TUBE WINDER HAND) Review of Systems: Review of Systems: Constitutional: Denies fever or chills. [] Eyes: Denies change in visual acuity. [] HENT: Denies nasal congestion or sore throat. [] Respiratory: Denies cough or shortness of breath. [] Cardiovascular: Denies chest pain or edema. [] GI: Umbilical abdominal pain, denies nausea, vomiting, bloody stools or diarrhea. [] : Denies dysuria. [] Musculoskeletal: Denies back pain or joint pain. [] Integument: Denies rash. Odorous drainage from bellybutton with pink skin change.[] Neurologic: Denies headache, focal weakness or sensory changes. [] Endocrine: Denies polyuria or polydipsia. [] Lymphatic: Denies swollen glands. [] Psychiatric: Denies depression or anxiety. [] (CHRISTIAN VILLASEÑOR TUBE WINDER HAND) Heart Score: Risk Factors: Risk Factors: DM, Current or recent (<one month) smoker, HTN, HLP, family h istory of CAD, obesity. Risk Scores: Score 0 - 3: 2.5% MACE over next 6 weeks - Discharge Home Score 4 - 6: 20.3% MACE over next 6 weeks - Admit for Clinical Observation Score 7 - 10: 72.7% MACE over next 6 weeks - Early Invasive Strategies (CHRISTIAN VILLASEÑOR APRN) Allergies: Allergies: Allergies Coded Allergies Type Severity Reaction Last Updated Verified Fish Containing Products Allergy Intermediate HIVES- TUNA 04/23/16 Yes Penicillins Allergy Intermediate Hives 06/16/16 Yes ondansetron Allergy Intermediate 04/23/16 Yes Uncoded Allergies Type Severity Reaction Last Updated Verified wiley Allergy Severe Hives 11/24/16 bologna Allergy Severe Hives 11/24/16 hotdogs Allergy Severe Hives 11/24/16 (CHRISTIAN VILLASEÑOR APRN) Physical Exam: PE: Constitutional: Well developed, well nourished, no acute distress, non-toxic appearance. [] HENT: Normocephalic, atraumatic, bilateral external ears normal, oropharynx moist, no oral exudates, nose normal. [] Eyes: PERRLA, EOMI, conjunctiva normal, no discharge. [] Neck: Normal range of motion, no tenderness, supple, no stridor. [] Cardiovascular:Heart rate regular rhythm, no murmur [] Lungs & Thorax: Bilateral breath sounds clear to auscultation [] Abdomen: Bowel sounds normal, soft, umbilical tenderness, no masses, no pulsatile masses. [] Skin: Warm, dry, no erythema, no rash. [place] skin colored inner bellybutton and right around the rim of the outer bellybutton [] Back: No tenderness, no CVA tenderness. [] Extremities: No tenderness, no cyanosis, no clubbing, ROM intact, no edema. [] Neurologic: Alert and oriented X 3, normal motor function, normal sensory function, no focal deficits noted. [] Psychologic: Affect normal, judgement normal, mood normal. [] (CHRISTIAN VILLASEÑOR APRN) EKG: EKG: [] (CHRISTIAN VILLASEÑOR APRN) Radiology/Procedures: Radiology/Procedures: [] (CHRISTIAN VILLASEÑOR APRN) Course & Med Decision Making: Course & Med Decision Making Pertinent Labs and Imaging studies reviewed. (See chart for details) See HPI. Umbilical tenderness with palpation. Abdomen is soft and there are no masses or drainage coming out of umbilicus. Afebrile. Alert and oriented. Ambulatory with a steady gait. I have discussed this patient with Dr. Landry who states she does not need any imaging to place her on clindamycin and antibiotic ointment. [] (CHRISTIAN VILLASEÑOR APRN) Dragon Disclaimer: Dragon Disclaimer: This electronic medical record was generated, in whole or in part, using a voice recognition dictation system. (CHRISTIAN VILLASEÑOR APRN) Departure Departure Impression: Primary Impression: Skin infection Disposition: HOME, SELF-CARE Condition: STABLE Referrals: NO PCP (PCP) Patient Instructions: Wound Infection Additional Instructions: Follow-up with your primary care doctor or go back to the doctor that did the tubal ligation. Take medication as prescribed and with food. Take ibuprofen or Tylenol for your pain. Scripts Clindamycin Hcl (CLINDAMYCIN HCL) 300 Mg Capsule 1 CAP PO TID, #21 CAP Prov: CHRISTIAN VILLASEÑOR APRN 10/24/19 Justicifation of Admission Dx: Justifications for Admission: Justification of Admission Dx: N/A (CHRISTIAN VILLASEÑOR APRN) Attending Signature Attending Signature I have reviewed the PA/ADVANCED MANUFACTURING TECHNICIAN's note and plan of care. I was available for consultation as needed during the patient's visit in the emergency department. I agree with the clinical impression, plan, and disposition. (PARVIN LANDRY DO) CHRISTIAN VILLASEÑOR APRN Oct 24, 2019 11:13 PARVIN LANDRY DO Oct 25, 2019 12:07
[2019-10-24] MEDS ORDERED: MUPIROCIN 2 % NASAL OINTMENT 22GM TUBE. TP ONE (11:30)
== END 2019-10-24 11:39 | disposition home or self-care (01) ==
LOC: ER 10:50
DX: L08.89 Other specified local infections of the skin and subcutaneous tissue (principal); J45.909 Unspecified asthma, uncomplicated; G43.909 Migraine, unspecified, not intractable, without status migrainosus; F17.200 Nicotine dependence, unspecified, uncomplicated; Z88.0 Allergy status to penicillin; Z88.5 Allergy status to narcotic agent; Z91.013 Allergy to seafood; Z91.018 Allergy to other foods
CPT/HCPCS: 99283

== ENCOUNTER 2019-11-01 10:24 | Emergency (ER) | payer MEDICAID | END 2019-11-01 11:39 | disposition left against medical advice (07) | LOC: ER 10:24 | DX: L29.9 Pruritus, unspecified (principal); Z53.21 Procedure and treatment not carried out due to patient leaving prior to being seen by health care provider ==

== ENCOUNTER 2020-01-01 19:26 | Emergency (ER) | payer MEDICAID ==
[~2020-01-01] VITALS: Ht 167.6 cm; Wt 90.9 kg
[2020-01-01 19:48] VITALS: BP 145/119
[2020-01-01] MEDS ORDERED: ACETAMINOPHEN 325 MG TABLET. PO ONE (20:30)
[2020-01-01] MEDS ORDERED: HYDROcodone/APAP 5/325MG 1 TAB TABLET ONE ×2 (20:36→20:37)
[2020-01-01] MEDS ORDERED: HYDROcodone/APAP 5/325MG 1 TAB TABLET PO ONE (21:00)
--- NOTE | 2020-01-01 22:02 | RAD ---
Three-view right hand and wrist radiographs 01/01/2020 CLINICAL HISTORY: Right hand and wrist pain after punching a wall. PA, lateral and oblique digital radiographs of the right hand the right wrist were obtained. No fracture or dislocation right hand or wrist is seen. No radiopaque foreign body is noted. IMPRESSION: No fracture or dislocation of the right hand or wrist is seen. Electronically signed by: Tiago Lawrence MD (01/01/2020 9:59 PM) [id number]
[2020-01-01] MEDS ORDERED: HYDR-2761 PO (22:07)
--- NOTE | 2020-01-01 22:07 | PHYS DOC ---
Past Medical History Past Medical History: Anxiety, Asthma, Migraines, Other Additional Past Medical Histor: BRADYCARDIA, PANIC ATTACK, PTSD, DRUG ABUSE Past Surgical History: Cholecystectomy, Tubal ligation, Other Additional Past Surgical Histo: LEFT FOOT SURGERY FRX REPAIR WITH HARDWARE Smoking Status: Current Every Day Smoker Alcohol Use: Occasionally Drug Use: Marijuana General Adult EDM: Chief Complaint: HAND PROBLEM HPI: HPI: Patient is a 24 year old female who presents the emergency department with complaints of right lateral hand pain, swelling, and bruising after punching a wall this evening. Patient states that the pain shoots up her arm. She denies any numbness, tingling, or weakness of the affected fingers. She denies any decreased range of motion of the affected hand. She currently rates pain a 9 out of 10 on the pain scale, the pain is worse with movement she denies any jennifer viating factors. She states that the pain radiates up her arm. Review of Systems: Review of Systems: Constitutional: Denies fever or chills. [] Musculoskeletal: See HPI Integument: See HPI Neurologic: Denies focal weakness or sensory changes. [] Complete ROS is negative unless otherwise stated in the HPI. Heart Score: Risk Factors: Risk Factors: DM, Current or recent (<one month) smoker, HTN, HLP, family history of CAD, obesity. Risk Scores: Score 0 - 3: 2.5% MACE over next 6 weeks - Discharge Home Score 4 - 6: 20.3% MACE over next 6 weeks - Admit for Clinical Observation Score 7 - 10: 72.7% MACE over next 6 weeks - Early Invasive Strategies Current Medications: Current Medications Medications (Trade) Dose Ordered Sig/[facility] Start Time Stop Time Status Last Admin Dose Admin Acetaminophen (Tylenol) 650 mg 1X ONCE 01/01/20 20:30 01/01/20 20:31 DC Acetaminophen/ Hydrocodone Bitart (Lortab 5/325) 1 tab 1X ONCE 01/01/20 21:00 01/01/20 21:01 DC 01/01/20 20:48 1 TAB Allergies: Allergies: Allergies Coded Allergies Type Severity Reaction Last Updated Verified Fish Containing Products Allergy Intermediate HIVES- TUNA 04/23/16 Yes Penicillins Allergy Intermediate Hives 06/16/16 Yes ondansetron Allergy Intermediate 04/23/16 Yes Uncoded Allergies Type Severity Reaction Last Updated Verified wiley Allergy Severe Hives 11/24/16 [facility] Allergy Severe Hives 11/24/16 swapnadogs Allergy Severe Hives 11/24/16 Physical Exam: PE: Constitutional: Well developed, well nourished, no acute distress, non-toxic appearance, obese. [] HENT: Normocephalic, atraumatic, bilateral external ears normal, nose normal. [] Eyes: PERRLA, EOMI, conjunctiva normal, no discharge. [] Neck: Normal range of motion, no stridor. [] Cardiovascular:Heart rate regular rhythm Lungs & Thorax: Respirations even and unlabored, no retractions, no respiratory distress Skin: Warm, dry, no erythema, no rash; bruising noted to lateral posterior right hand, no abrasions. [] Extremities: Right hand: Lateral tenderness to palpation over the fourth and fifth metacarpals, no crepitus, no obvious deformity, no cyanosis, ROM intact, 2+ edema. [] Neurologic: Alert and oriented X 3, no focal deficits noted. [] Psychologic: Affect normal, judgement normal, mood normal. [] Current Patient Data: Vital Signs: Vital Signs Date Time Temp Pulse Resp B/P (MAP) Pulse Ox O2 Delivery O2 Flow Rate FiO2 01/01/20 20:48 Room Air 01/01/20 19:48 98.1 80 16 145/119 (128) 99 98.1 EKG: EKG: [] Radiology/Procedures: Radiology/Procedures: PROCEDURE: HAND RIGHT 3V Three-view right hand and wrist radiographs 01/01/2020 CLINICAL HISTORY: Right hand and wrist pain after punching a wall. PA, lateral and oblique digital radiographs of the right hand the right wrist were obtained. No fracture or dislocation right hand or wrist is seen. No radiopaque foreign body is noted. IMPRESSION: No fracture or dislocation of the right hand or wrist is seen.[] Course & Med Decision Making: Course & Med Decision Making Pertinent Labs and Imaging studies reviewed. (See chart for details) [] Dragon Disclaimer: Dragon Disclaimer: This electronic medical record was generated, in whole or in part, using a voice recognition dictation system. Departure Departure Impression: Primary Impression: Contusion of right hand, initial encounter Additional Impression: Right hand pain Disposition: 01 HOME, SELF-CARE Condition: STABLE Referrals: JANETT ESPINOZA MD Patient Instructions: Hand Contusion, [id number] Additional Instructions: Fill prescription(s) and use as directed. Recommend application of ice, elevation, and rest of affected extremity. Wear the splint that was placed until follow up appointment with your orthopedic surgeon or this week. Rreturn to the ER if your symptoms worsen. Scripts Hydrocodone Bit/Acetaminophen (HYDROCODONE-APAP 5-325 ) 1 Tab Tablet 0.5-1 TAB PO PRN Q6HRS PRN for SEVERE PAIN 7-10, #10 TAB 0 Refills Prov: MARY BETH RODRIGUES SUPERVISOR RU[employer]OVERING 01/01/20 Justicifation of Admission Dx: Justifications for Admission: Justification of Admission Dx: N/A Splinting Splinting : Location: R hand Hand-Made Type: orthoglass Splint: volar Pre-Proc Neuro Vasc Exam: normal Post-Proc Neuro Vasc Exam: normal, unchanged from pre-exam MARY BETH RODRIGUES SUPERVISOR [employer] COVERING Jan 01, 2020 22:07
== END 2020-01-01 22:21 | disposition home or self-care (01) ==
LOC: ER 19:26
DX: S60.221A Contusion of right hand, initial encounter (principal); M25.531 Pain in right wrist; R60.0 Localized edema; F41.9 Anxiety disorder, unspecified; J45.909 Unspecified asthma, uncomplicated; G43.909 Migraine, unspecified, not intractable, without status migrainosus; F17.200 Nicotine dependence, unspecified, uncomplicated; F12.90 Cannabis use, unspecified, uncomplicated; Z90.49 Acquired absence of other specified parts of digestive tract; Z98.51 Tubal ligation status; Z98.890 Other specified postprocedural states; Z91.013 Allergy to seafood; Z88.0 Allergy status to penicillin; Z88.8 Allergy status to other drugs, medicaments and biological substances; Y29.XXXA Contact with blunt object, undetermined intent, initial encounter; Y93.89 Activity, other specified; Y92.89 Other specified places as the place of occurrence of the external cause; Y99.8 Other external cause status
CPT/HCPCS: 29125; 73110; 73130; 99284